=== PATIENT | male | born 1935 | race Caucasian/White ===

== ENCOUNTER → 2016-05-20 | Outpatient (CLI) | payer OTHER ==
[2016-05-20 13:49] LABS: ALT/SGPT 15 U/L (12-78); BLOOD UREA NITROGEN 15 mg/dl (7-18); BUN/CREATININE RATIO 13.5 (10-20); CALCIUM 9.1 mg/dl (8.5-10.1); CARBON DIOXIDE 25 mmol/L (21-32); CHLORIDE 105 mmol/L (98-107); GLUCOSE 78 mg/dl (70-99); POTASSIUM 4.2 mmol/L (3.5-5.1); SODIUM 140 mmol/L (136-145)
[2016-05-20 13:59] LABS: ALB/GLOB RATIO 1.3 (0.9-2); ALKALINE PHOSPHATASE 52 U/L (45-117); AST/SGOT 18 U/L (15-37)
== END | disposition home or self-care (01) ==
LOC: C.LABPBG 10:54
PROVIDERS: ATTEND Internal Medicine
DX: I10 Essential (primary) hypertension (principal); R41.3 Other amnesia

== ENCOUNTER → 2016-05-22 | Outpatient (CLI) | payer OTHER ==
[~2016-05-22] MED LIST: OPTIRAY 320 IV PRN
--- NOTE | 2016-05-23 08:37 | DIAGNOSTIC IMAGING REPORT ---
CT ANGIOGRAPHY OF THE ABDOMEN AND PELVIS WITH CONTRAST CT DOSE: 324.84 mGy.cm CLINICAL HISTORY: Abdominal pain. TECHNIQUE: Helical axial images of the abdomen and pelvis were obtained during arterial phase following intravenous injection of 89 cc of Optiray 320 IV. Sagittal and coronal reconstructions were reviewed as well as maximal intensity projections on an independent 3-D workstation. COMPARISON STUDY: Abdominal series July 17, 2015. FINDINGS: The heart is mildly enlarged. Arterial phase images of the liver, spleen, adrenal glands, kidneys and pancreas are unremarkable. There is no biliary or pancreatic ductal dilatation. There is no pneumatosis, free air or portal venous gas. The prostate is moderately enlarged. There is no evidence for a bowel obstruction. There is mild wall thickening of the terminal ileum. There is no free air or abscess. The appendix is not visualized. The caliber of the abdominal aorta is normal. The celiac axis is patent. There is mild plaque at the origin of the superior mesenteric artery without significant stenosis. The inferior mesenteric artery is patent. The left renal artery is patent. There is moderate stenosis of the proximal right renal artery. An accessory renal artery is present There is no dissection. No lymphadenopathy is present. Note is made of a 3 mm nonobstructing calculus at the left ureterovesical junction. There is no upstream dilatation. No suspicious skeletal lesions are identified. Numerous subcentimeter renal lesions are too small to characterize. IMPRESSION: 1. No significant stenosis of the major mesenteric vessels. Mild plaque at the origin of the SMA without significant stenosis. 2. Moderate stenosis of the proximal right renal artery. 3. Mild nonspecific wall thickening of the terminal ileum. 4. Nonobstructing 3 mm calculus at the left ureterovesical junction. Electronically signed by: Ernesto Stephenson M.D. 05/23/2016 8:35 AM Dictated Date/Time: 05/22/2016 3:59 PM
== END | disposition home or self-care (01) ==
LOC: C.CTS 14:08
PROVIDERS: ATTEND Internal Medicine
DX: R10.9 Unspecified abdominal pain (principal); I70.1 Atherosclerosis of renal artery; N20.0 Calculus of kidney

== ENCOUNTER → 2016-05-29 | Outpatient (CLI) | payer OTHER ==
--- NOTE | 2016-05-29 14:14 | DIAGNOSTIC IMAGING REPORT ---
NUCLEAR GASTRIC EMPTYING STUDY CLINICAL HISTORY: Generalized abdominal pain. COMPARISON STUDY: Abdominal CT dated 05/22/2016. TECHNIQUE: Following the oral administration of 1.02 mCi of technetium 99m sulfur colloid in egg sandwich and 8 ounces of water, static abdominal images are obtained anteriorly and posteriorly at 0 minutes, 1 hour, 2 hour, and 4 hour time intervals. Gastric emptying was calculated utilizing the geometric mean method. FINDINGS: There is approximately 78% activity remaining at the 1 hour time interval, 39% remaining at the 2 hour time interval (normal is less than 60%), and 0% activity remaining at the 4 hour time interval (normal is less than 10%). IMPRESSION: Findings are consistent with normal gastric emptying for solids. Electronically signed by: Micheal Woods M.D. 05/29/2016 2:12 PM Dictated Date/Time: 05/29/2016 2:11 PM
== END | disposition home or self-care (01) ==
LOC: C.NUCL 08:21
PROVIDERS: ATTEND Internal Medicine
DX: R10.9 Unspecified abdominal pain (principal)

== ENCOUNTER → 2016-12-03 | Outpatient (CLI) | payer OTHER ==
[2016-12-03 13:14] LABS: BLOOD UREA NITROGEN 13 mg/dl (7-18); BUN/CREATININE RATIO 12.2 (10-20); CALCIUM 8.9 mg/dl (8.5-10.1); CARBON DIOXIDE 25 mmol/L (21-32); CHLORIDE 108 mmol/L (98-107); GLUCOSE 93 mg/dl (70-99); POTASSIUM 3.8 mmol/L (3.5-5.1); SODIUM 142 mmol/L (136-145)
[2016-12-03 13:16] LABS: CHOLESTEROL 207 mg/dl (0-200); HDL CHOLESTEROL 52 mg/dl; LDL CHOLESTEROL CALCULATED 130 mg/dl; TRIGLYCERIDES 124 mg/dl (0-150); VERY LOW DENSITY LIPOPROT CALC 25 mg/dl
== END | disposition home or self-care (01) ==
LOC: C.LABPBG 08:42
PROVIDERS: ATTEND Physician Assistant
DX: Z00.00 Encounter for general adult medical examination without abnormal findings (principal); E78.5 Hyperlipidemia, unspecified; I10 Essential (primary) hypertension

== ENCOUNTER 2023-04-02 17:51 | Inpatient (IN) ==
[2023-04-02] MEDS ORDERED: SODIUM CHLORIDE 0.9% 500 ML IV ONE (18:01)
--- NOTE | 2023-04-02 18:14 | Emergency Department Note ---
Impression & Plan SBO (small bowel obstruction), Dementia, Leukocytosis ED Provider Note NAME: SANDEEP FLORES AGE: 88 SEX: M ARRIVES VIA: Ambulance INFORMANT: Patient ED PROVIDER(S): Winston Delatorre MD CHIEF COMPLAINT: Abdominal pain PLAN: Disposition: Admit MEDICAL DECISION MAKING: The patient is a pleasant 88-year-old gentleman with a past medical history of dementia, hypertension, hyperlipidemia, constipation who presents to the emergency department via EMS, accompanied by his for evaluation of acute onset severe left-sided and lower abdominal pain that occurred this evening where she reports he yelled out in pain. She reports that after receiving morphine by EMS his symptoms improved. She does admit that his abdomen looks distended but this often occurs/fluctuates. She reports that he frequently will complain of pain but not as severe as he did today and usually the pain will dissipate very quickly. She reports he has been belching repeatedly. She reports she does not know for sure when his last bowel movement was as he frequently will go to the bathroom on his own and due to his dementia cannot remember if he moves his bowels or not. She further adds that he also likely does not remember if he has pain or not. On my evaluation the patient is in no acute distress, afebrile with elevated blood pressure and vital signs otherwise stable. His abdomen is distended but not tense. He has generalized abdominal discomfort without discrete tenderness. WBC 13.8 K, nonspecific. H/H and platelets within normal limits. Chemistry without metabolic acidosis. Electrolytes and LFTs without significant abnormality. Lipase not elevated. CT of the abdomen pelvis was performed and per radiology interpretation suggest evidence of enteritis but also with dilated loops of bowel measuring up to 3.3 cm concerning for partial small bowel obstruction. Findings reviewed with the patient and his at the bedside. Ultimately they did agree with plan for admission for further management and NG tube placement and surgical consultation. Case was discussed with general surgery then stool wired, with general surgery Dr. Rosado on-call. Appreciate consultation recommendations. Agrees with management with NG tube at this time. Case was discussed with Dr. Schumacher, [facility] hospitalist, who will evaluate the patient for admission. Further management per general surgery and admitting team. Triage Nursing notes reviewed and agree them. Prior/external medical records reviewed Vital Signs: reviewed Differential diagnosis: Gastroenteritis, food borne illness, infections, appendicitis, diverticulitis, inflammatory bowel disease, obstruction, GI bleed, biliary pathology, volvulus, as well as other pathologies. ER treatment provided: See below. Diagnostics interpreted by me: Cardiac Monitoring: An order for continuous cardiac monitoring was placed and demonstrated normal sinus rhythm, 76 bpm, no ectopy. Laboratory studies: See below Imaging studies: See below Consultation(s): Antony Saba general surgery PAC with general surgery Dr. Rosado on-call. Dr. Schumacher, [facility] hospitalist. HPI: The patient is a pleasant 88-year-old gentleman with a past medical history of dementia, hypertension, hyperlipidemia, constipation who presents to the emergency department via EMS, accompanied by his for evaluation of acute onset severe left-sided and lower abdominal pain that occurred this evening where she reports he yelled out in pain. She reports that after receiving morphine by EMS his symptoms improved. She does admit that his abdomen looks distended but this often occurs/fluctuates. She reports that he frequently will complain of pain but not as severe as he did today and usually the pain will dissipate very quickly. She reports he has been belching repeatedly. She reports she does not know for sure when his last bowel movement was as he frequently will go to the bathroom on his own and due to his dementia cannot remember if he moves his bowels or not. She further adds that he also likely does not remember if he has pain or not. ROS: See above HPI for pertinent positives & negatives. A total of 10 systems reviewed and were otherwise negative. VITALS:See Below PHYSICAL EXAMINATION: GENERAL: Awake, alert, in no distress HENT: Normocephalic, atraumatic. Oropharynx unremarkable. EYES: Normal conjunctiva. Sclera non-icteric. NECK: Supple. No nuchal rigidity. FROM. No JVD. RESPIRATORY: Clear to auscultation. CARDIAC: Regular rate, normal rhythm. Extremities warm and well perfused. Pulses equal. ABDOMEN: Abdomen is distended but not tense. He has generalized abdominal discomfort without discrete tenderness. RECTAL: Deferred. MUSCULOSKELETAL: Chest examination reveals no tenderness. The back is symmetrical on inspection without obvious abnormality. There is no CVA tenderness to palpation. No joint edema. LOWER EXTREMITIES: Calves are equal size bilaterally and non-tender. No edema. No discoloration. NEURO: Pleasantly confused. No focal sensory or motor deficits noted. SKIN: No rash or jaundice noted. Winston Delatorre MD Past Med/Surg History Medical History [place] (hard of hearing) History of neuropathy POST SHINGLES/USES PILLOW SUPPORT FOR LEFT ARM. Acid reflux Hiatal hernia Afib DX 3-4 YR AGO. NO HX CARDIOVERSION. HTN (hypertension) ? History of renal calculi History of excessive cerumen BILATERAL Mauro esophagus ? Dementia FOLLOWS NEURO. PT ABLE TO COMMUNICATE EFFECTIVELY. Surgical History History of cataract surgery right History of endoscopy WITH FIRST ENDOSCOPY MENTIONED BARRETS ESOPHAGUS. WITH SECOND ENDOSCOPY BARRETS ESOPHAGUS WASN'T MENTIONED/A HIATAL HERNIA WAS MENTIONED. History of laminectomy Laminectomy Decompress, Facetectomy, Foraminotomy Lumbar Seg History of colonoscopy History of appendectomy Family History Father Hypertension Myocardial infarction Brother Hypertension Son Colorectal cancer Other Family history non-contributory Family history of ischemic heart disease before age 50 Denies family history of Ovarian cancer Prostate cancer Breast cancer Social History Smoking Status: Unknown if ever smoked Tobacco Type: Cigarettes Age Started Using Tobacco: 15; Age Quit Using Tobacco: 61; packs per day: 0.5; Cigarettes Per Day: 1960; Second Hand Exposure: No; Do You Dip or Chew Tobacco: No; Hx Alcohol Use: No Hx Substance Use: No Preferred Language: Slovenian Communication Ability: Effective Communication Ability Comment: PT IS [place]/COMMUNICATION IS EFFECTIVE/SEE PAT COMMUNICATION NOTES. Visual Impairment: Limited Hearing Ability: Hard of Hearing 411 Directory Assistance Operator Required: No Beliefs That Will Affect Care: None marital status: Current Living Situation: Spouse and Family Current Living Situation Comment: AND DAUGHTER current occupational status: retired Feels Safe at Home: Yes Childhood Exposure to Second-Hand Smoke: Yes Diet: regular Diet Comment: well balanced. caffeine: Yes (Coffee x2 in the am.) during the past year weight has: remained stable Dental Care, Regularly: Yes Physical Activity Frequency: Does not Exercise Seatbelt Use: always Sunscreen Use: No Assistive Devices: Glasses and Hearing Aid - Bilateral Allergies Allergies Allergy/AdvReac Type Severity Reaction Status Date / Time oxytetracycline Allergy Unknown MADE Verified 04/02/23 18:05 [From Terramycin] ILLNESS WORSE Home Meds Home Medications Medication Instructions Recorded Confirmed cholecalciferol (vitamin D3) 25 2,000 units PO QAM 03/29/19 04/02/23 mcg (1,000 unit) tablet (Vitamin D3) vitamin B complex (B 1 tab PO QAM 10/24/21 04/02/23 Complex-Vitamin B12 tablet) memantine 28 mg capsule 28 mg PO QAM 09/05/22 04/02/23 sprinkle,extended release 24hr omeprazole 20 mg capsule,delayed 20 mg PO UD PRN Acid Reflux 09/05/22 04/02/23 release aspirin 81 mg tablet,delayed 81 mg PO QAM 01/16/23 04/02/23 release metoprolol succinate 25 mg 25 mg PO QAM 01/16/23 04/02/23 tablet,extended release 24 hr Results & Data (ED) Vital Signs Vital Signs - 24 hr 04/02/23 17:34 04/02/23 18:00 04/02/23 18:37 Temperature 36.9 C Temperature Source Oral Pulse Rate 67 69 Pulse Rate from SpO2 Sensor Respiratory Rate 15 Blood Pressure 194/139 H Blood Pressure Mean 157 Pulse Oximetry 99 Oxygen Delivery Method Room Air Room Air Sepsis Recent Fever Within 48 Hours No Sepsis New/Unexplained Change in Mental Status No Sepsis Action Taken by Nursing No Action Required 04/02/23 18:37 04/02/23 19:00 04/02/23 19:06 Temperature Temperature Source Pulse Rate 71 74 75 Pulse Rate from SpO2 Sensor 68 74 73 Respiratory Rate 18 18 22 Blood Pressure 220/146 H 196/117 H Blood Pressure Mean 170 143 Pulse Oximetry 98 97 86 L Oxygen Delivery Method Sepsis Recent Fever Within 48 Hours Sepsis New/Unexplained Change in Mental Status Sepsis Action Taken by Nursing 04/02/23 19:15 04/02/23 19:34 04/02/23 19:38 Temperature Temperature Source Pulse Rate 73 74 72 Pulse Rate from SpO2 Sensor Respiratory Rate 27 H 24 19 Blood Pressure 214/124 H 205/120 H Blood Pressure Mean 154 148 Pulse Oximetry 69 L Oxygen Delivery Method Sepsis Recent Fever Within 48 Hours Sepsis New/Unexplained Change in Mental Status Sepsis Action Taken by Nursing 04/02/23 20:00 Temperature Temperature Source Pulse Rate 81 Pulse Rate from SpO2 Sensor Respiratory Rate 20 Blood Pressure Blood Pressure Mean Pulse Oximetry 95 Oxygen Delivery Method Sepsis Recent Fever Within 48 Hours Sepsis New/Unexplained Change in Mental Status Sepsis Action Taken by Nursing Laboratory Data Attestation: I reviewed the patient's lab results. 04/02/23 18:30 04/02/23 18:30 Lab Results 04/02/23 Range/Units 18:30 WBC 13.83 H (4.8-10.8) K/ul RBC 4.73 (4.70-6.10) M/uL Hgb 14.8 (14.0-18.0) g/dl Hct 43.5 (42.0-52.0) % MCV 92.0 (80.0-100.0) fL MCH 31.3 (25.0-34.0) pg MCHC 34.0 (32.0-36.0) g/dL RDW Std Deviation 42.8 (36.4-46.3) fL RDW Coeff of Brayan 12.6 (11.5-14.5) % Plt Count 267 (130-400) K/uL MPV 10.7 (9.4-12.4) fL Immature Gran % (Auto) 0.4 % Neut % (Auto) 83.2 % Lymph % (Auto) 11.0 % Barron % (Auto) 4.2 % Eos % (Auto) 0.7 % Baso % (Auto) 0.5 % Neut # (Auto) 11.51 H (1.40-6.50) K/uL Lymph # (Auto) 1.52 (1.20-3.40) K/uL Barron # (Auto) 0.58 (0.11-0.59) K/uL Eos # (Auto) 0.09 (0.00-0.50) K/uL Baso # (Auto) 0.07 (0.00-0.20) K/uL Immature Gran # (Auto) 0.06 (0.01-0.20) K/uL Sodium 138 (136-145) mmol/L Potassium 4.2 (3.5-5.1) mmol/L Chloride 104 (98-107) mmol/L Carbon Dioxide 26 (21-32) mmol/L Anion Gap 8 (3-11) BUN 21 (6-23) mg/dl Creatinine 1.26 (0.6-1.4) mg/dl Est Cr Clr Drug Dosing 35.3 ml/min Est GFR ( Amer) 58.6 ml/min Est GFR (Non-Af Amer) 50.6 ml/min BUN/Creatinine Ratio 16.7 (10-20) Glucose 186 H (70-99(Fasting)) mg/dl Calcium 9.1 (8.6-10.3) mg/dl Total Bilirubin 0.4 (0.2-1.0) mg/dl Direct Bilirubin 0.1 (0-0.2) mg/dl AST 16 (13-39) U/L ALT 8 (7-52) U/L Alkaline Phosphatase 85 (34-104) U/L Total Protein 7.2 (6.0-8.3) gm/dl Albumin 4.0 (3.4-5.0) gm/dl Globulin 3.2 (2.5-4.0) gm/dl Albumin/Globulin Ratio 1.3 (0.9-2) Lipase 19 (11-82) U/L Administered Medications Hydralazine HCl (Hydralazine Hcl 20 Mg/Ml Vial) 10 mg IV Q4H PRN PRN Reason: SBP above 160 Stop: 05/02/23 22:16 Last Admin: 04/02/23 23:10 Dose: 10 mg Documented By: CPB Discontinued Medications Benzocaine/Butamben/Tetracaine HCl (Benzocaine/Tetracain/Butam 50 Appln/5 Gm Can) 1 appln EXT NOW STA Stop: 04/02/23 22:21 Last Admin: 04/02/23 22:37 Dose: 1 appln Documented By: CPB Sodium Chloride (Nss) 500 mls @ 999 mls/hr IV .Q31M ONE Stop: 04/02/23 18:31 Last Infusion: 04/02/23 21:16 Dose: Infused Documented By: Admin: 04/02/23 18:38 Dose: 999 mls/hr Documented By: ARS Acetaminophen (Ofirmev) 1,000 mg in 100 mls @ 400 mls/hr IV NOW STA Stop: 04/02/23 22:01 Last Infusion: 04/02/23 23:11 Dose: Infused Documented By: Admin: 04/02/23 22:42 Dose: 400 mls/hr Documented By: CPB Sodium Chloride (Nss) 1,000 mls @ 125 mls/hr IV .Q8H ENDY Stop: 05/02/23 21:59 Last Admin: 04/02/23 23:14 Dose: Not Given Documented By: JR Pantoprazole Sodium 40 mg/ (Syringe) 10 mls @ 5 mls/min IV NOW ONE Stop: 04/02/23 22:31 Last Admin: 04/02/23 22:43 Dose: 5 mls/min Documented By: CPB Piperacillin Sod/Tazobactam Sod (Zosyn) 4.5 gm in 100 mls @ 200 mls/hr IV NOW ONE Stop: 04/02/23 22:59 Last Infusion: 04/03/23 00:07 Dose: Infused Documented By: Admin: 04/02/23 23:12 Dose: 200 mls/hr Documented By: CPB Ioversol (Optiray 320 500ml) 89 ml IV ONCE ONE Stop: 04/02/23 19:50 Last Admin: 04/02/23 19:51 Dose: 89 ml Documented By: ACE Lidocaine HCl (Lidocaine 2% Jelly 5 Ml Tube) 5 ml EXT NOW ONE Stop: 04/02/23 22:05 Last Admin: 04/02/23 22:37 Dose: 5 ml Documented By: CPB Potassium Chloride/Sodium Chloride (Nss+Kcl 20 Meq 1000ml) Confirm Administered Dose 20 meq IV .STK-MED ONE Stop: 04/02/23 22:54 Last Admin: 04/03/23 01:20 Dose: Not Given Documented By: KW Imaging Data Radiologist's Impression: Abdomen/Pelvis CT 04/02/23 18:32 Exam(s): CT ABDOMEN + PELVIS With Contrast IV Amt: 89 ml optiray 320 EXAM: CT Abdomen and Pelvis With Intravenous Contrast CLINICAL HISTORY: Reason for exam: abd pain, ?constipation. TECHNIQUE: Axial computed tomography images of the abdomen and pelvis with intravenous contrast. CTDI is 20.07 mGy and DLP is 967.36 mGy-cm. Automated exposure control was utilized for the study. A dose lowering technique was utilized adhering to the principles of ALARA. CONTRAST: Patient received 89 ml optiray 320 of IV contrast COMPARISON: CT abdomen pelvis January 16, 2023. FINDINGS: Lung bases: COPD. No consolidation. Heart: Mild cardiomegaly. ABDOMEN: Liver: Unremarkable. No mass. Gallbladder and bile ducts: Unremarkable. No calcified stones. No ductal dilation. Pancreas: Unremarkable. No mass. No ductal dilation. Spleen: Unremarkable. No splenomegaly. Adrenals: Unremarkable. No mass. Kidneys and ureters: Small renal cysts. No hydronephrosis. Stomach and bowel: Wall thickening of small bowel with perienteric edema, concerning for enteritis. This preferentially involves the bowel in the mid abdomen (series 300 image 33). There are dilated loops of small bowel measuring up to 3.3 cm, concerning for resultant, partial small bowel obstruction. PELVIS: Appendix: No findings to suggest acute appendicitis. Bladder: Unremarkable. No mass. Reproductive: Enlarged prostate gland, measures 5.7 cm mid-lateral. ABDOMEN and PELVIS: Intraperitoneal space: Unremarkable. No free air. No significant fluid collection. Bones/joints: Degenerative changes of the spine. No acute fracture. No dislocation. Soft tissues: Unremarkable. Vasculature: Atherosclerotic changes of the aorta. No abdominal aortic aneurysm. Lymph nodes: Unremarkable. No enlarged lymph nodes. IMPRESSION: Wall thickening of small bowel with perienteric edema, concerning for enteritis. This preferentially involves the bowel in the mid abdomen (series 300 image 33). Associated, dilated loops of small bowel measuring up to 3.3 cm, concerning for resultant, partial small bowel obstruction. Electronically signed by: Loco Francis MD 04/02/23 20:58 PM Discharge Plan Visit Data Chief Complaint: Abdominal Pain Stated Complaint: ABDOMINAL PAIN ED Provider: Winston Delatorre Discharge Problem: SBO (small bowel obstruction), Dementia, Leukocytosis Patient Disposition: Admitted As Inpatient Discharge Instructions Interventions: ED Discharge Assessment Last Done: 04/03/23 00:18 Discharge Problem: Dementia Qualifiers: Dementia type: unspecified type Dementia severity: unspecified severity D ementia behavioral or psychological symptom: unspecified whether behavioral, psychotic, or mood disturbance or anxiety Qualified Code(s): F03.90 - Unspecified dementia, unspecified severity, without behavioral disturbance, psychotic disturbance, mood disturbance, and anxiety Leukocytosis Qualifiers: Leukocytosis type: unspecified Qualified Code(s): D72.829 - Elevated white blood cell count, unspecified
[2023-04-02 18:52] LABS: Basophils # (auto) 0.07 K/uL (0.00-0.20); Basophils % (auto) 0.5 %; Eosinophils # (auto) 0.09 K/uL (0.00-0.50); Eosinophils % (auto) 0.7 %; Hematocrit (blood only) 43.5 % (42.0-52.0); Hemoglobin 14.8 g/dl (14.0-18.0); Immature Granulocytes # (auto) 0.06 K/uL (0.01-0.20); Immature Granulocytes % (auto) 0.4 %; Lymphocytes # (auto) 1.52 K/uL (1.20-3.40); Mean Corpuscular Hemoglobin 31.3 pg (25.0-34.0); Mean Platelet Volume 10.7 fL (9.4-12.4); Monocytes # (auto) 0.58 K/uL (0.11-0.59); Monocytes % (auto) 4.2 %; Neutrophils # (auto) 11.51 K/uL (1.40-6.50); Neutrophils % (auto) 83.2 %; Platelet Count 267 K/uL (130-400); RDW Coefficient of Variation 12.6 % (11.5-14.5); RDW Standard Deviation 42.8 fL (36.4-46.3); Red Blood Count 4.73 M/uL (4.70-6.10); White Blood Count 13.83 K/ul (4.8-10.8)
[2023-04-02 19:07] LABS: Albumin Globulin Ratio 1.3 (0.9-2); BUN Creatinine Ratio 16.7 (10-20); Bilirubin Direct 0.1 mg/dl (0-0.2); Bilirubin,Total 0.4 mg/dl (0.2-1.0); Calcium 9.1 mg/dl (8.6-10.3); Creatinine Clr Calc Pharmacy 35.3 ml/min; Est GFR (African American) 58.6 ml/min; Est GFR (Non-African American) 50.6 ml/min; Globulin 3.2 gm/dl (2.5-4.0); Potassium 4.2 mmol/L (3.5-5.1); Total Protein 7.2 gm/dl (6.0-8.3)
[2023-04-02] MEDS ORDERED: OPTIRAY 320 500ml IV ONE (19:49)
--- NOTE | 2023-04-02 20:59 | CT Scan Report ---
Exam(s): CT ABDOMEN + PELVIS With Contrast IV Amt: 89 ml optiray 320 EXAM: CT Abdomen and Pelvis With Intravenous Contrast CLINICAL HISTORY: Reason for exam: abd pain, ?constipation. TECHNIQUE: Axial computed tomography images of the abdomen and pelvis with intravenous contrast. CTDI is 20.07 mGy and DLP is 967.36 mGy-cm. Automated exposure control was utilized for the study. A dose lowering technique was utilized adhering to the principles of ALARA. CONTRAST: Patient received 89 ml optiray 320 of IV contrast COMPARISON: CT abdomen pelvis January 16, 2023. FINDINGS: Lung bases: COPD. No consolidation. Heart: Mild cardiomegaly. ABDOMEN: Liver: Unremarkable. No mass. Gallbladder and bile ducts: Unremarkable. No calcified stones. No ductal dilation. Pancreas: Unremarkable. No mass. No ductal dilation. Spleen: Unremarkable. No splenomegaly. Adrenals: Unremarkable. No mass. Kidneys and ureters: Small renal cysts. No hydronephrosis. Stomach and bowel: Wall thickening of small bowel with perienteric edema, concerning for enteritis. This preferentially involves the bowel in the mid abdomen (series 300 image 33). There are dilated loops of small bowel measuring up to 3.3 cm, concerning for resultant, partial small bowel obstruction. PELVIS: Appendix: No findings to suggest acute appendicitis. Bladder: Unremarkable. No mass. Reproductive: Enlarged prostate gland, measures 5.7 cm mid-lateral. ABDOMEN and PELVIS: Intraperitoneal space: Unremarkable. No free air. No significant fluid collection. Bones/joints: Degenerative changes of the spine. No acute fracture. No dislocation. Soft tissues: Unremarkable. Vasculature: Atherosclerotic changes of the aorta. No abdominal aortic aneurysm. Lymph nodes: Unremarkable. No enlarged lymph nodes. IMPRESSION: Wall thickening of small bowel with perienteric edema, concerning for enteritis. This preferentially involves the bowel in the mid abdomen (series 300 image 33). Associated, dilated loops of small bowel measuring up to 3.3 cm, concerning for resultant, partial small bowel obstruction. Electronically signed by: Loco Francis MD 04/02/23 20:58 PM
[2023-04-02] MEDS ORDERED: ACETAMINOPHEN 1,000 MG/100 ML VIAL IV STA (21:47)
[2023-04-02] MEDS ORDERED: SODIUM CHLORIDE 0.9% 1,000 ML IV SCH (22:00)
[2023-04-02] MEDS ORDERED: LIDOCAINE 2% JELLY 5 ML TUBE EXT ONE (22:04)
[2023-04-02] MEDS ORDERED: PIPERACILLIN/TAZOBACTAM 4.5 GM in DEXTROSE 5% MINI-B 100 ML IV ONE (22:15)
--- NOTE | 2023-04-02 22:18 | Surgery Consultation ---
Date of Consultation April 02, 2023 Assessment & Plan (1) Small bowel obstruction: I discussed with the treating emergency room physician and the patient is being admitted on the hospital service. From surgery perspective we recommend proceeding as follows: Implement n.p.o. status Provide IV fluid for hydration Utilize antiemetics as needed Utilize analgesics as needed Due to the patient's abdominal distention as well as distention of his stomach noted on CT scan to treat emergency room physician felt that NG tube was warranted which I agree with. At the present time the patient and his are agreeable to this. This may help alleviate some of the patient's abdominal distention. I am concerned with the patient's underlying dementia that he may not permit/tolerate this modality but after discussion with the patient and his along with nursing staff will make an attempt. I discussed with the patient's at bedside that would be preferable to avoid any surgical procedure and utilize her conservative care plan as described above and she is in agreement with this At the present time the patient is comfortable, he does not have hypotension or tachycardia and does not have evidence of acute kidney injury. As noted in history of present illness the patient does not have any abdominal pain on physical exam at this time. I therefore feel a trial of conservative management is warranted in this patient Additional recommendations will be forthcoming based on his clinical course does not involve Supervising Physician Co-Signing Physician Notes I personally saw and evaluated the patient with Bruno Saba PA-C and agree with the assessment and plan. 88-year-old male with partial small bowel obstruction versus enteritis His CT images and results were personally viewed and interpreted by myself We can treat him as a partial small bowel obstruction and keep him n.p.o. He is being admitted to the medical service Will follow along, but no plans for operative intervention at this time History of Present Illness Reason for Consultation: Small bowel obstruction History of Present Illness This is an 88-year-old male who presented to the emergency department at the recommendation of his secondary to abdominal pain. Should be noted that the patient has underlying dementia and therefore could not provide much in the way of meaningful history but his was present at bedside who did help supplement the history. Patient's notes that the patient has chronic on/off abdominal pain almost on a daily basis. She notes that the pain is usually of no consequence but today she noted that her had a poor appetite which was unusual for him. She then notes that approximately 4:00 PM on 04/02/2023 he complained of severe abdominal pain in the mid abdomen. She noted that he appeared nauseated but she notes that he has not had any emesis. She notes that he had several episodes of pain in this fashion so she brought him to the emergency department. She is unsure if the patient has not had any diarrhea and is unsure when the patient had his most recent bowel movement. She has not noted that he has been passing any flatus. The patient's records were reviewed and the patient does have a documented history of chronic abdominal pain and a history of gastric ulcer. According to the patient's he does have a history of abdominal surgery in the form of an appendectomy but has not had any other abdominal surgeries. Since arrival to the emergency department this patient has had labs and imaging which independent reviewed. Patient did have a CT scan of the abdomen pelvis that showed patient had wall thickening of the small bowel with some GURJIT enteric edema which was concerning for an enteritis. There is also associated dilated loops of small bowel which were concerning for partial small bowel obstruction. There is no significant intraperitoneal free air or intraperitoneal free fluid. The stomach did appear dilated on the scan. Labs include a CBC her white blood cell count was 13.8. Hemoglobin and hematocrit along with a platelet count were normal. Chemistry profile showed sodium and potassium along with the BUN and creatinine were normal. There were no elevation of LFTs or lipase At the time of my interview the patient was sitting in a bedside chair and he was in no distress Allergies Allergy/AdvReac Type Severity Reaction Status Date / Time oxytetracycline Allergy Unknown MADE Verified 04/02/23 18:05 [From Terramycin] ILLNESS WORSE Home Medications Medication Instructions Recorded Confirmed Type cholecalciferol (vitamin D3) 25 2,000 units PO QAM 03/29/19 04/02/23 History mcg (1,000 unit) tablet (Vitamin D3) vitamin B complex (B 1 tab PO QAM 10/24/21 04/02/23 History Complex-Vitamin B12 tablet) memantine 28 mg capsule 28 mg PO QAM 09/05/22 04/02/23 History sprinkle,extended release 24hr omeprazole 20 mg capsule,delayed 20 mg PO UD PRN Acid Reflux 09/05/22 04/02/23 History release aspirin 81 mg tablet,delayed 81 mg PO QAM 01/16/23 04/02/23 History release metoprolol succinate 25 mg 25 mg PO QAM 01/16/23 04/02/23 History tablet,extended release 24 hr Patient History Medical History [place] (hard of hearing) History of neuropathy POST SHINGLES/USES PILLOW SUPPORT FOR LEFT ARM. Acid reflux Hiatal hernia Afib DX 3-4 YR AGO. NO HX CARDIOVERSION. HTN (hypertension) ? History of renal calculi History of excessive cerumen BILATERAL Mauro esophagus ? Dementia FOLLOWS NEURO. PT ABLE TO COMMUNICATE EFFECTIVELY. Surgical History History of cataract surgery right History of endoscopy WITH FIRST ENDOSCOPY MENTIONED BARRETS ESOPHAGUS. WITH SECOND ENDOSCOPY BARRETS ESOPHAGUS WASN'T MENTIONED/A HIATAL HERNIA WAS MENTIONED. History of laminectomy Laminectomy Decompress, Facetectomy, Foraminotomy Lumbar Seg History of colonoscopy History of appendectomy Family History Father Hypertension Myocardial infarction Brother Hypertension Son Colorectal cancer Other Family history non-contributory Family history of ischemic heart disease before age 50 Denies family history of Ovarian cancer Prostate cancer Breast cancer Social History Smoking Status: Former smoker Tobacco Type: Cigarettes Age Started Using Tobacco: 15; Age Quit Using Tobacco: 61; packs per day: 0.5; Cigarettes Per Day: 1960; Second Hand Exposure: No; Do You Dip or Chew Tobacco: No; Hx Alcohol Use: No Hx Substance Use: No Preferred Language: Urdu Communication Ability: Effective Communication Ability Comment: PT IS [place]/COMMUNICATION IS EFFECTIVE/SEE PAT COMMUNICATION NOTES. Visual Impairment: Limited Hearing Ability: Hard of Hearing Insurance Follow Up Rep Required: No Beliefs That Will Affect Care: None marital status: Current Living Situation: Spouse Current Living Situation Comment: AND DAUGHTER current occupational status: retired Feels Safe at Home: Yes Childhood Exposure to Second-Hand Smoke: Yes Diet: regular Diet Comment: well balanced. caffeine: Yes (Coffee x2 in the am.) during the past year weight has: remained stable Dental Care, Regularly: Yes Physical Activity Frequency: Does not Exercise Seatbelt Use: always Sunscreen Use: No Assistive Devices: Glasses Review of Systems Constitutional: no fever and no chills Eyes: + corrective lenses Ear, Nose, Mouth, Throat: + hearing loss Respiratory: no cough Cardiovascular: no chest pain Gastrointestinal: as per Subjective / HPI Genitourinary: no urinary frequency Musculoskeletal: no back pain Integumentary: no rash Neurologic: no localized weakness Physical Exam Constitutional: WD/WN, vitals as above Eyes: Wears glasses ENMT: Ears: no hearing impairment and no external ear abnormality Mouth: no oropharynx abnormality Neck: trachea midline Respiratory: normal respiratory effort; no respiratory distress and no labored breathing Cardiovascular: Rate/Rhythm: regular rate Gastrointestinal (Abdomen): Patient's abdomen is noted to have mild to moderate distention. It is tympanic to percussion. Bowel sounds are present. At the time of my exam light and deep palpation did not elicit a painful response. I do not appreciate any hernias on my physical exam. There is no rebound tenderness or guarding. Musculoskeletal: No calf tenderness Skin: no rashes Neurologic: moves all extremities Psychiatric: Patient is alert to person. He is confused to time and place Results & Data Vital Signs (Past 12 Hours) Vital Signs Temp Pulse Resp BP Pulse Ox O2 Del Method 04/02/23 18:37 69 04/02/23 18:00 Room Air 04/02/23 17:34 36.9 C 67 15 194/139 H 99 Room Air PG Care Time/CCT Total # of Minutes Spent Total Time Spent with Patient: Total time spent is greater than 50% in coordination of care (as documented) at patient's floor/unit and/or counseling patient: Coding Level of Care Code 24987 INT INP/OBS CARE 3/75MIN Diagnoses Small bowel obstruction K56.609
[2023-04-02] MEDS ORDERED: BENZOCAINE/TETRACAIN/BUTAM 50 APPLN/5 GM CAN EXT STA (22:20)
--- NOTE | 2023-04-02 22:22 | History & Physical Report ---
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 Zosyn 4.5 g IV every 8 hours Pantoprazole 40 mg IV daily NSS + KCl 20 mill equivalents at 80 mL/h Acetaminophen 1 g IV every 8 hours as needed for mild pain or fever Zofran 4 mg IV every 6 hours as needed Daily CBC with differential, chemistry profile, magnesium and phosphorus levels General surgery consult Hypertension- Hold aspirin and metoprolol succinate Hydralazine 10 mg IV every 4 hours as needed for systolic blood pressure above 160 Dementia- may need to stay with patient, as he tends to become disoriented and agitated when she is not around Holding memantine due to n.p.o. status CODE STATUS: DNR/DNI, as confirmed by History of Present Illness Chief Complaint: The patient presents to the emergency department with his , who provides most of his information, as the patient has significant dementia, which limits his ability to input about his condition Primary Care Provider: JAKE Martinez The patient is an 88-year-old male with a past medical history including Mauro's esophagus, chronic pain syndrome, dementia, GERD, hyperlipidemia, hypertension, vitamin D deficiency, polyneuropathy, history of gastric ulcer, chronic right SI joint pain and vitamin B12 deficiency. The patient's noted that the patient has been having increasing abdominal distention, with decreased oral intake over the past week, and presented with him to the ED for assessment. Allergies Allergy/AdvReac Type Severity Reaction Status Date / Time oxytetracycline Allergy Unknown MADE Verified 04/02/23 18:05 [From Terramycin] ILLNESS WORSE Home Medications Medication Instructions Recorded Confirmed Type cholecalciferol (vitamin D3) 25 2,000 units PO QAM 03/29/19 04/02/23 History mcg (1,000 unit) tablet (Vitamin D3) vitamin B complex (B 1 tab PO QAM 10/24/21 04/02/23 History Complex-Vitamin B12 tablet) memantine 28 mg capsule 28 mg PO QAM 09/05/22 04/02/23 History sprinkle,extended release 24hr omeprazole 20 mg capsule,delayed 20 mg PO UD PRN Acid Reflux 09/05/22 04/02/23 History release aspirin 81 mg tablet,delayed 81 mg PO QAM 01/16/23 04/02/23 History release metoprolol succinate 25 mg 25 mg PO QAM 01/16/23 04/02/23 History tablet,extended release 24 hr Past Med/Surg History Medical History [place] (hard of hearing) History of neuropathy POST SHINGLES/USES PILLOW SUPPORT FOR LEFT ARM. Acid reflux Hiatal hernia Afib DX 3-4 YR AGO. NO HX CARDIOVERSION. HTN (hypertension) ? History of renal calculi History of excessive cerumen BILATERAL Mauro esophagus ? Dementia FOLLOWS NEURO. PT ABLE TO COMMUNICATE EFFECTIVELY. Surgical History History of cataract surgery right History of endoscopy WITH FIRST ENDOSCOPY MENTIONED BARRETS ESOPHAGUS. WITH SECOND ENDOSCOPY BARRETS ESOPHAGUS WASN'T MENTIONED/A HIATAL HERNIA WAS MENTIONED. History of laminectomy Laminectomy Decompress, Facetectomy, Foraminotomy Lumbar Seg History of colonoscopy History of appendectomy Family History Father Hypertension Myocardial infarction Brother Hypertension Son Colorectal cancer Other Family history non-contributory Family history of ischemic heart disease before age 50 Denies family history of Ovarian cancer Prostate cancer Breast cancer Social History Smoking Status: Unknown if ever smoked Tobacco Type: Cigarettes Age Started Using Tobacco: 15; Age Quit Using Tobacco: 61; packs per day: 0.5; Cigarettes Per Day: 1960; Second Hand Exposure: No; Do You Dip or Chew Tobacco: No; Hx Alcohol Use: No Hx Substance Use: No Preferred Language: Chinese Communication Ability: Effective Communication Ability Comment: PT IS [place]/COMMUNICATION IS EFFECTIVE/SEE PAT COMMUNICATION NOTES. Visual Impairment: Limited Hearing Ability: Hard of Hearing [employer] Required: No Beliefs That Will Affect Care: None marital status: Current Living Situation: Spouse and Family Current Living Situation Comment: AND DAUGHTER current occupational status: retired Feels Safe at Home: Yes Childhood Exposure to Second-Hand Smoke: Yes Diet: regular Diet Comment: well balanced. caffeine: Yes (Coffee x2 in the am.) during the past year weight has: remained stable Dental Care, Regularly: Yes Physical Activity Frequency: Does not Exercise Seatbelt Use: always Sunscreen Use: No Assistive Devices: Glasses and Hearing Aid - Bilateral Review of Systems Review of Systems: Review of systems is limited due to patient's significant dementia, however, his presents information as noted above. She denies him having any issues with nausea or vomiting. Physical Exam Physical Exam: The patient is awake, alert, well developed and well nourished, normocephalic and atraumatic, lying in bed and in no acute distress. HEENT--PERRL, EOMI, mucous membranes and oropharynx dry. Neck--supple. No JVD. No bruits. Thyroid normal, trachea midline, no adenopathy. Heart--normal S1 and S2. No murmurs, rubs or gallops. Lungs--clear bilaterally, no respiratory distress, no accessory muscle use. Abdomen--normal bowel sounds and soft. Nontender. Moderately distended and tympanitic. Extremities--no cyanosis or clubbing. No edema. Dermatologic--normal skin turgor, normal color, no abnormal lymph nodes, no rash. Neurologic--cranial nerves II through XII grossly intact. Rheumatologic--normal range of motion. Psychiatric--normal affect Results & Data Results & Data Vital Signs (Past 12 Hours) Vital Signs Temp Pulse Resp BP Pulse Ox O2 Del Method 04/02/23 18:37 69 04/02/23 18:00 Room Air 04/02/23 17:34 36.9 C 67 15 194/139 H 99 Room Air Laboratory Results Laboratory Results WBC 13.83 K/ul (4.8-10.8) H 04/02/23 18:30 RBC 4.73 M/uL (4.70-6.10) 04/02/23 18:30 Hgb 14.8 g/dl (14.0-18.0) 04/02/23 18:30 Hct 43.5 % (42.0-52.0) 04/02/23 18:30 MCV 92.0 fL (80.0-100.0) 04/02/23 18:30 MCH 31.3 pg (25.0-34.0) 04/02/23 18:30 MCHC 34.0 g/dL (32.0-36.0) 04/02/23 18:30 RDW Std Deviation 42.8 fL (36.4-46.3) 04/02/23 18:30 RDW Coeff of Brayan 12.6 % (11.5-14.5) 04/02/23 18: Plt Count 267 K/uL (130-400) 04/02/23 18:30 MPV 10.7 fL (9.4-12.4) 04/02/23 18:30 Immature Gran % (Auto) 0.4 % 04/02/23 18: Neut % (Auto) 83.2 % 04/02/23 18:30 Lymph % (Auto) 11.0 % 04/02/23 18:30 [place] % (Auto) 4.2 % 04/02/23 18:30 Eos % (Auto) 0.7 % 04/02/23 18: Baso % (Auto) 0.5 % 04/02/23 18:30 Neut # (Auto) 11.51 K/uL (1.40-6.50) H 04/02/23 18:30 Lymph # (Auto) 1.52 K/uL (1.20-3.40) 04/02/23 18:30 [place] # (Auto) 0.58 K/uL (0.11-0.59) 04/02/23 18:30 Eos # (Auto) 0.09 K/uL (0.00-0.50) 04/02/23 18:30 Baso # (Auto) 0.07 K/uL (0.00-0.20) 04/02/23 18:30 Immature Gran # (Auto) 0.06 K/uL (0.01-0.20) 04/02/23 18:30 Sodium 138 mmol/L (136-145) 04/02/23 18:30 Potassium 4.2 mmol/L (3.5-5.1) 04/02/23 18:30 Chloride 104 mmol/L (98-107) 04/02/23 18:30 Carbon Dioxide 26 mmol/L (21-32) 04/02/23 18:30 Anion Gap 8 (3-11) 04/02/23 18:30 BUN 21 mg/dl (6-23) 04/02/23 18:30 Creatinine 1.26 mg/dl (0.6-1.4) 04/02/23 18:30 Est Cr Clr Drug Dosing 35.3 ml/min 04/02/23 18:30 Est GFR ( Amer) 58.6 ml/min 04/02/23 18:30 Est GFR (Non-Af Amer) 50.6 ml/min 04/02/23 18:30 BUN/Creatinine Ratio 16.7 (10-20) 04/02/23 18:30 Glucose 186 mg/dl (70-99(Fasting)) H 04/02/23 18:30 Calcium 9.1 mg/dl (8.6-10.3) 04/02/23 18:30 Total Bilirubin 0.4 mg/dl (0.2-1.0) 04/02/23 18:30 Direct Bilirubin 0.1 mg/dl (0-0.2) 04/02/23 18:30 AST 16 U/L (13-39) 04/02/23 18:30 ALT 8 U/L (7-52) 04/02/23 18:30 Alkaline Phosphatase 85 U/L (34-104) 04/02/23 18:30 Total Protein 7.2 gm/dl (6.0-8.3) 04/02/23 18:30 Albumin 4.0 gm/dl (3.4-5.0) 04/02/23 18:30 Globulin 3.2 gm/dl (2.5-4.0) 04/02/23 18:30 Albumin/Globulin Ratio 1.3 (0.9-2) 04/02/23 18:30 Lipase 19 U/L (11-82) 04/02/23 18:30 Impressions Abdomen/Pelvis CT 04/02/23 18:32 Exam(s): CT ABDOMEN + PELVIS With Contrast IV Amt: 89 ml optiray 320 EXAM: CT Abdomen and Pelvis With Intravenous Contrast CLINICAL HISTORY: Reason for exam: abd pain, ?constipation. TECHNIQUE: Axial computed tomography images of the abdomen and pelvis with intravenous contrast. CTDI is 20.07 mGy and DLP is 967.36 mGy-cm. Automated exposure control was utilized for the study. A dose lowering technique was utilized adhering to the principles of ALARA. CONTRAST: Patient received 89 ml optiray 320 of IV contrast COMPARISON: CT abdomen pelvis January 16, 2023. FINDINGS: Lung bases: COPD. No consolidation. Heart: Mild cardiomegaly. ABDOMEN: Liver: Unremarkable. No mass. Gallbladder and bile ducts: Unremarkable. No calcified stones. No ductal dilation. Pancreas: Unremarkable. No mass. No ductal dilation. Spleen: Unremarkable. No splenomegaly. Adrenals: Unremarkable. No mass. Kidneys and ureters: Small renal cysts. No hydronephrosis. Stomach and bowel: Wall thickening of small bowel with perienteric edema, concerning for enteritis. This preferentially involves the bowel in the mid abdomen (series 300 image 33). There are dilated loops of small bowel measuring up to 3.3 cm, concerning for resultant, partial small bowel obstruction. PELVIS: Appendix: No findings to suggest acute appendicitis. Bladder: Unremarkable. No mass. Reproductive: Enlarged prostate gland, measures 5.7 cm mid-lateral. ABDOMEN and PELVIS: Intraperitoneal space: Unremarkable. No free air. No significant fluid collection. Bones/joints: Degenerative changes of the spine. No acute fracture. No dislocation. Soft tissues: Unremarkable. Vasculature: Atherosclerotic changes of the aorta. No abdominal aortic aneurysm. Lymph nodes: Unremarkable. No enlarged lymph nodes. IMPRESSION: Wall thickening of small bowel with perienteric edema, concerning for enteritis. This preferentially involves the bowel in the mid abdomen (series 300 image 33). Associated, dilated loops of small bowel measuring up to 3.3 cm, concerning for resultant, partial small bowel obstruction. 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 K22.70 Gastroesophageal reflux disease K21.9 Essential hypertension I10 Hypertension type: essential hypertension 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
[2023-04-02] MEDS ORDERED: PIPERACILLIN/TAZOBACTAM 4.5 GM/100 ML BAG IV ONE (22:30)
[2023-04-02] MEDS ORDERED: PANTOprazole 40 MG in SYRINGE 0 ML IV ONE (22:30)
[2023-04-02] MEDS ORDERED: NSS+KCL 20 MEQ 1000ML IV ONE (22:53)
[2023-04-02] MEDS: hydrALAZINE HCL 20 MG/ML VIAL IV PRN (23:10)
[2023-04-03] MEDS ORDERED: ONDANSETRON INJ 2 MG/ML 2 ML VIAL IV PRN (01:11)
[2023-04-03] MEDS: NSS + 20MEQ KCL 20 MEQ/1,000 ML BAG IV SCH ×2 (01:47→15:57)
[2023-04-03 02:51] LABS: Appearance Urine Clear (Clear); Bilirubin Urine Negative (Negative); Blood Urine Negative (Negative); Color Urine Yellow; Glucose Urine UA Negative (Negative); Ketones Urine Negative (Negative); Leukocyte Esterase Urine Negative (Negative); Nitrite Urine Negative (Negative); Protein Urine Negative (Negative); Specific Gravity Urine > 1.045 (1.000-1.030); Urobilinogen Urine Negative (Negative)
[2023-04-03] MEDS ORDERED: CHLORASEPTIC 1.4% SOLN 180 ML BTL MT PRN (02:58)
[2023-04-03] MEDS: PIPERACILLIN/TAZOBACTAM 4.5 GM in DEXTROSE 5% MINI-B 100 ML IV SCH ×2 (05:03→14:21)
[2023-04-03] MEDS ORDERED: ACETAMINOPHEN 1,000 MG/100 ML VIAL IV PRN (07:00)
--- OUTSIDE RECORDS SUMMARY | 2023-04-03 07:19 | External Medical Summary | Summary of Care ---
Author Name Unknown Organization [facility] Address [address] [place] [address] Phone [phone] Care Team Providers Care Instrumentation Specialist Name Role Phone Chris Vasquez MD Primary Care Provider [phone] Reason for Visit * Reason Comments Follow Up B feet Encounter Details Date Type Department Care Team Description 11/14/2022 Office Visit Podiatry [facility] [address] [place] [address] Juana Espinosa, DPM [address] [place] [address] Onychomycosis*; Pain in toes of both feet Allergies Active Allergy Reactions Severity Noted Date Comments Oxytetracycline 09/02/2003 documented as of this encounter (statuses as of 11/14/2022) Medications Medication Sig Dispensed Refills Start Date End Date Status ASPIRIN 81 MG PO CHEW one a day 0 Act aria Pantoprazole Sodium 40 MG Oral Tablet Delayed Release (Protonix) 0 05/16/2020 Active Metoprolol Succinate ER 25 MG Oral Tablet Extended Release 24 Hour (toPROL XL) 0 04/25/2020 Active Sucralfate 1 GM Oral Tablet (Carafate) Take 1 g by mouth 4 times a day. 0 Active Vitamin D3 1.25 MG (43505 UT) Oral Capsule Take 50,000 Units by mouth daily. 0 Active Memantine HCl ER 28 MG Oral Capsule Extended Release 24 Hour (Namenda XR) 0 08/23/2021 Active Cyanocobalamin 500 MCG Oral Tablet Take 1 Tablet by mouth in the morning. 0 10/26/2021 Active documented as of this encounter (statuses as of 11/14/2022) Active Problems No known active problems documented as of this encounter (statuses as of 11/14/2022) Immunizations Name Administration Dates Next Due COVID-19 mRNA, LNP-s, No Pre serve, 2-Dose Series (WeYAP) 03/27/2021,06/27/2020,06/05/2020 Covid-19, Mrna, Lnp-s, Pf, B ivalent, 30 Mcg, IM, 12 yrs and above (WeYAP) 03/12/2022 Seasonal Influenza, Quadriva lent Hd (Fluzone Hd) 04/05/2022 documented as of this encounter Social History Tobacco Use Types Packs/Day Years Used Date Smoking Tobacco: Former Cigarettes Smokeless Tobacco: Former Quit: 05/02/1958 Alcohol Use Standard Drinks/Week Comments No 0 (1 standard drink = 0.6 oz pur e alcohol) Sex Assigned at Date Recorded Not on file Job Start Date Occupation Industry Not on file Not on file Not on file documented as of this encounter Progress Notes * Juana Espinosa, DECLAN - 11/14/2022 10:56 AM EDT Podiatry Established Note [facility] Name: Nader Brandon : 1935 Date: 11/14/2022 REASON FOR VISIT: foot care SUBJECTIVE: This patient is a 87year old male who presents today accompanied by his .The patient's complains of elongated, thickened, discolored toenails that she is not able to trim. reports that he has dementia. He offers no other complaints today. reports recent visit to PCP 01/16/2022, Chris Vasquez MD Past Medical History: Diagnosis Date Esophageal reflux Gastroesophageal Reflux (GERD) Other and unspecified hyperlipidemia Hypercholesterolemia Unspecified essential hypertension Hypertension, benign ALLERGIES: Review of patient's allergies indicates: Allergen Reactions Oxytetracycline FOCUSED PODIATRIC EXAM: Vitals: There were no vitals filed for this visit. Vascular: Pedal pulses palpable including dorsalis pedis and posterior tibial artery at 2/4 bilaterally. Capillary refill time is within normal limits to all toes. No edema noted. No warmth. Absence ofpedal hair growth noted. Neurologic: Sensation (light touch) intact to the bilateral lower extremities. No hypersensitivity. No weakness. Dermatological: Skin temperature, texture, and turgor are within normal limits. No open lesions. There is no erythema or ecchymosis noted. No interdigital changes. Toenails 1-5 bilaterally are elongated, thickened, and discolored. DIAGNOSTIC STUDIES: No new ASSESSMENT: 1. Onychomycosis TA T1 T2 T3 T4 T5 T6 T7 T8 T9 2. Pain in toes of both feet PLAN: Procedure: After mild cleansing and drying of feet, toenails 1-5 bilaterally were manually and mechanically debrided without incident. A nail splitter was used to remove all incurvating edges. A upper cutter wasused to trim nail to appropriate length. An electrical bur was used in a side to side motion to reduce nail thickness, hypertrophic growth, and to smooth all edges. Patient tolerated well. They noted improvement following procedure. Follow up: 3 months documented in this encounter Nursing Notes * Ingrid Ventura ATC - 11/14/2022 10:20 AM EDT Routine nail care documented in this encounter Plan of Treatment Upcoming Encounters Date Type Specialty Care Team Description 02/14/2023 Office Visit Podiatry Juaan Espinosa DPM [address], [place] [id number] Health Maintenance Due Date Last Done Comments Depression Screening, Annual for Pts 12 and Over 1947 DTaP,Tdap,and Td Vaccines (1 - Tdap) 1954 Pneumococcal Vaccine: 65+ Years (1 - PCV) 2000 Zoster Vaccines (2 of 3) 03/06/2009 01/09/2009 Influenza Vaccine (FLU shot) (#1) 2022 04/05/2022, 01/25/2019, 03/17/2018, Additional history exists COVID-19 Vaccine Completed 03/12/2022, , 06/27/2020, Additional history exists GARDASIL-HPV IMMUNIZATION SERIES Aged Out No longer eligible based on patient's age to complete this topic Hepatitis B Aged Out No longer eligi ble based on patient's age to complete this topic MENINGOCOCCAL (MENACTRA/MENVEO) Aged Out No longer eligible based on patient's age to complete this topic documented as of this encounter Medical Devices Not on filedocumented as of this encounter Visit Diagnoses Diagnosis Onychomycosis- Primary Dermatophytosis of nail Pain in toes of both feet documented in this encounter Care Teams Instrumentation Specialist Relationship Specialty Start Date End Date Chris Vasquez MD PCP - General Internal Medicine 05/21/18 documented as of this encounter
--- OUTSIDE RECORDS SUMMARY | 2023-04-03 07:19 | External Medical Summary | Summary of Care ---
Author Name Unknown Organization [facility] Address [address] [place] [address] Phone [phone] Care Team Providers Care Tool Engine Lathe Set Up Operator Name Role Phone Chris Vasquez MD Primary Care Provider [phone] Reason for Visit * Reason Comments Follow Up Routine nail trimmin g Encounter Details Date Type Department Care Team Description 02/14/[address] [facility] [address] [place] [address] Juana Espinosa, DPAnne [address] [place], [place] [phone] Onychomycosis*; Pain in toes of both feet Allergies Active Allergy Reactions Severity Noted Date Comments Oxytetracycline 09/02/2003 documented as of this encounter (statuses as of 02/14/2023) Medications Medication Sig Dispensed Refills Start Date [...] day. 0 Active Vitamin D3 1.25 MG (91091 UT) Oral Capsule Take 50,000 Units by mouth daily. 0 Active Memantine HCl ER 28 MG Oral Capsule Extended Release 24 Hour (Namenda XR) 0 08/23/2021 Active Cyanocobalamin 500 MCG Oral Tablet Take 1 Tablet by mouth in the morning. 0 10/26/2021 Active documented as of this encounter (statuses as of 02/14/2023) Active Problems No known active problems documented as of this encounter (statuses as of 02/14/2023) Immunizations Name Administration Dates Next Due COVID-19 mRNA, LNP-s, No Pre serve, 2-Dose Series (Ritani) 03/27/2021,06/27/2020,06/05/2020 Covid-19, Mrna, Lnp-s, Pf, B ivalent, 30 Mcg, IM, 12 yrs and above (Ritani) 03/12/2022 Seasonal Influenza, Quadriva lent Hd (Fluzone [...] of this encounter Progress Notes * Juana Espinosa DPM - 02/14/2023 10:58 AM EDT Podiatry Established Note [facility] Name: Nader Brandon : 1935 Date: 02/14/2023 REASON FOR VISIT: foot care SUBJECTIVE: This patient is a 87 year old male who presents today accompanied by his . The patient's complains of elongated, thickened, discolored toenails that she is not able to trim. Wifereports that he has dementia. He offers no [...] toes. No edema noted. No warmth. Absence of pedal hair growth noted. Neurologic: Sensation (light touch) [...] used to remove all incurvating edges. A underwear cutter wasused to trim nail to appropriate length. An electrical bur was used in a side to side motion to reduce nail thickness, hypertrophic growth, and to smooth all edges. Patient tolerated well. They noted improvement following procedure. Follow up: 3 months documented in this encounter Nursing Notes * Anastasiya Marie LPN - 02/14/2023 10:30 AM EDT Routine nail trimming. Denies new issues. Anastasiya CHERRY documented in this encounter Plan of Treatment Upcoming Encounters Date Type Specialty Care Team Description 05/21/2023 Office Visit Podiatry Juana Espinosa DPM [address] [place] [address] [place] [address] Health Maintenance Due Date Last Done Comments Depression Screening 1947 DTaP,Tdap,and Td Vaccines (1 - Tdap) 1954 Pneumococcal Vaccine: 65+ Years (1 - PCV) 2000 Zoster Vaccines (2 of 3) 03/06/2009 01/09/2009 COVID-19 Vaccine (5 - 2022- season) 2022 03/12/2022, 03/27/2021, 06/27/2020, Additional history exists Influenza Vaccine (FLU shot) (#1) 2022 04/05/2022, 01/25/2019, 03/17/2018, Additional history exists GARDASIL-HPV IMMUNIZATION SERIES Aged [...] feet documented in this encounter Care Teams Tool Engine Lathe Set Up Operator Relationship Specialty Start Date End Date Chris Vasquez MD PCP - General Internal Medicine 05/21/18 documented as of this encounter
--- NOTE | 2023-04-03 07:23 | XRay Report ---
[facility] CLINICAL HISTORY: Confirmation of NG tube placement COMPARISON STUDY: CT of the abdomen and pelvis April 02, 2023 at 7:49 PM. FINDINGS: Tip of nasogastric tube is within the body of the stomach. Gastric distention is again note d. There is mild gaseous distention of visualized portions of the colon. IMPRESSION: Tip of nasogastric tube within the body of the stomach. ACT 112: Negative or not required by law. Electronically signed by: Ernesto Stephenson M.D. 04/03/2023 7:22 AM
[2023-04-03 08:11] LABS: Basophils # (auto) 0.04 K/uL (0.00-0.20); Basophils % (auto) 0.4 %; Eosinophils # (auto) 0.03 K/uL (0.00-0.50); Eosinophils % (auto) 0.3 %; Hematocrit (blood only) 38.3 % (42.0-52.0); Hemoglobin 12.7 g/dl (14.0-18.0); Immature Granulocytes # (auto) 0.05 K/uL (0.01-0.20); Immature Granulocytes % (auto) 0.5 %; Lymphocytes # (auto) 0.84 K/uL (1.20-3.40); Lymphocytes % (auto) 7.9 %; Mean Corpuscular Hemoglobin 30.8 pg (25.0-34.0); Mean Corpuscular Hgb Conc 33.2 g/dL (32.0-36.0); Mean Corpuscular Volume 92.7 fL (80.0-100.0); Mean Platelet Volume 10.7 fL (9.4-12.4); Monocytes # (auto) 0.76 K/uL (0.11-0.59); Monocytes % (auto) 7.1 %; Neutrophils # (auto) 8.98 K/uL (1.40-6.50); Neutrophils % (auto) 83.8 %; Platelet Count 217 K/uL (130-400); RDW Coefficient of Variation 12.7 % (11.5-14.5); RDW Standard Deviation 43.4 fL (36.4-46.3); Red Blood Count 4.13 M/uL (4.70-6.10)
--- NOTE | 2023-04-03 08:12 | Surgery Progress Note ---
Date of Service April 03, 2023 Assessment & Plan (1) SBO (small bowel obstruction): Plan: Patient seen in room trying to get out of bed, Assisted with urinal voided dark yellow clear urine Assisted back to bed , alarm on Patient removed NG tube last night, no vomiting Is pleasantly confused, at bedside reports patient passed flatus last night VSS , WBC 10 Abdomen is still distended, TTP more at LLQ Ok to keep NG tube out at Will continue conservative treatment at this time (2) Dementia: Admission and Anticipated Discharge Date Admission Date: April 02, 2023 Supervising Physician Co-Signing Physician Notes I personally saw and evaluated the patient with Maria Isabel JOSEPH and agree with the assessment and plan. 88-year-old male with partial small bowel obstruction versus enteritis His NG tube came out overnight, no need to replace at this time His states he has been passing some flatus, would still keep n.p.o. for today Will continue to attempt nonoperative management of his partial small bowel obstruction Will follow Subjective patient seen in room trying to get out of bed, Assisted with urinal voided dark yellow clear urine Assisted back to bed , alarm on Patient removed NG tube last night, no vomiting Is pleasantly confused, at bedside reports patient passed flatus last night Review of Systems Constitutional: no fever and no chills Respiratory: no dyspnea Cardiovascular: no chest pain Gastrointestinal: + abdominal pain; no nausea and no vomit ing Genitourinary: no problem reported Musculoskeletal: no problem reported Physical Exam Physical Exam: awake , pleasant Constitutional: cooperative and comfortable; no acute distress Respiratory: normal respiratory effort and able to speak in complete sentences; no respiratory distress Cardiovascular: Rate/Rhythm: regular rate Gastrointestinal (Abdomen): Inspection/Auscultation: + abdomen distended Percussion/Palpation: + abdomen tender (more tender LLQ ) and + abdomen firm Musculoskeletal: seems unsteady on feet Results & Data Vital Signs (Past 12 Hours) Vital Signs Temp Pulse Pulse Resp BP BP BP 04/03/23 08:01 98.6 F 80 16 128/65 04/03/23 00:55 97.3 F L 84 16 186/97 H 04/03/23 00:18 04/02/23 23:45 76 21 140/92 04/02/23 23:30 78 22 121/64 04/02/23 23:23 82 15 146/86 H 04/02/23 22:55 76 18 184/111 H Pulse Ox O2 Del Method 04/03/23 08:01 96 Room Air 04/03/23 00:55 93 Room Air 04/03/23 00:18 Room Air 04/02/23 23:45 04/02/23 23:30 04/02/23 23:23 04/02/23 22:55 96 Room Air PG Care Time/CCT Total # of Minutes Spent Total Time Spent with Patient: Total time spent is greater than 50% in coordination of care (as documented) at patient's floor/unit and/or counseling patient: Coding Level of Care Code 55984 SUB INP/OBS CARE 2MIN Diagnoses SBO (small bowel obstruction) K56.609 Dementia F03.90 Dementia behavioral or psychological symptom: unspecified whether behavioral, psychotic, or mood disturbance or anxiety Dementia severity: unspecified severity Dementia type: unspecified type (2) Dementia Dementia behavioral or psychological symptom: unspecified whether behavioral, psychotic, or mood disturbance or anxiety Dementia severity: unspecified severity Dementia type: unspecified type Qualified Code(s): F03.90 - Unspecified dementia, unspecified severity, without behavioral disturbance, psychotic disturbance, mood disturbance, and anxiety
[2023-04-03 08:35] LABS: Albumin Globulin Ratio 1.4 (0.9-2); Albumin Level 3.5 gm/dl (3.4-5.0); BUN Creatinine Ratio 16.2 (10-20); Calcium 8.9 mg/dl (8.6-10.3); Est GFR (African American) 56.5 ml/min; Est GFR (Non-African American) 48.7 ml/min; Globulin 2.5 gm/dl (2.5-4.0); Magnesium 1.7 mg/dl (1.7-2.4); Phosphorus 2.7 mg/dl (2.5-4.9); Potassium 4.7 mmol/L (3.5-5.1)
[2023-04-03] MEDS: PANTOprazole 40 MG in SYRINGE 0 ML IV SCH (10:46)
--- NOTE | 2023-04-03 19:40 | Hospitalist Progress Note ---
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 Stopped Zosyn 4 Pantoprazole 40 mg IV daily NSS + KCl 20 mill equivalents at 80 mL/h Acetaminophen 1 g IV every 8 hours as needed for mild pain or fever Zofran 4 mg IV every 6 hours as needed Daily CBC with differential, chemistry profile, magnesium and phosphorus levels General surgery consult appreciated Hypertension- Hold aspirin and metoprolol succinate Hydralazine 10 mg IV every 4 hours as needed for systolic blood pressure above 160 Dementia- may need to stay with patient, as he tends to become disoriented and agitated when she is not around Holding memantine due to n.p.o. status CODE STATUS: DNR/DNI, as confirmed by Admission and Anticipated Discharge Date Admission Date: April 02, 2023 Subjective patient seen in room trying to get out of bed, Assisted with urinal voided dark yellow clear urine Assisted back to bed , alarm on Patient removed NG tube last night, no vomiting Is pleasantly confused, at bedside reports patient passed flatus last night Physical Exam Physical Exam: awake , pleasant Constitutional: WD/WN, vitals as above cooperative and comfortable; no acute distress Respiratory: normal respiratory effort and able to speak in complete senten dante; no respiratory distress and no labored breathing Cardiovascular: Rate/Rhythm: regular rate Gastrointestinal (Abdomen): Inspection/Auscultation: + abdomen distended Percussion/Palpation: + abdomen tender (more tender LLQ ) and + abdomen firm Skin: no rashes Neurologic: moves all extremities Results & Data Results & Data Vital Signs (Past 12 Hours) Vital Signs Temp Pulse Resp BP BP Pulse Ox O2 Del Method 04/03/23 16:12 36.7 C 62 16 124/85 97 Room Air 04/03/23 08:01 37.0 C 80 16 128/65 96 Room Air 04/03/23 07:40 Room Air PG Care Time/CCT Total # of Minutes Spent Total Time Spent with Patient: Total time spent is greater than 50% in coordination of care (as documented) at patient's floor/unit and/or counseling patient: Coding Level of Care Code 21491 SUB INP/OBS CARE Diagnoses Small bowel obstruction K56.609 Enteritis K52.9 Abdominal bloating R14.0 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 K22.70 Gastroesophageal reflux disease K21.9 Essential hypertension I10 Hypertension type: essential hypertension 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
[2023-04-03] MEDS ORDERED: Nursing to Pharmacy Communication SCH (20:00)
[2023-04-04] MEDS: hydrALAZINE HCL 20 MG/ML VIAL IV PRN (01:37)
[2023-04-04] MEDS: NSS + 20MEQ KCL 20 MEQ/1,000 ML BAG IV SCH (05:12)
[2023-04-04] MEDS ORDERED: Nursing to Pharmacy Communication SCH (05:30)
[2023-04-04 07:33] LABS: Basophils # (auto) 0.05 K/uL (0.00-0.20); Basophils % (auto) 0.7 %; Eosinophils # (auto) 0.24 K/uL (0.00-0.50); Eosinophils % (auto) 3.4 %; Hematocrit (blood only) 37.6 % (42.0-52.0); Hemoglobin 12.7 g/dl (14.0-18.0); Immature Granulocytes # (auto) 0.01 K/uL (0.01-0.20); Immature Granulocytes % (auto) 0.1 %; Lymphocytes # (auto) 1.82 K/uL (1.20-3.40); Lymphocytes % (auto) 26.1 %; Mean Corpuscular Hemoglobin 30.8 pg (25.0-34.0); Mean Corpuscular Hgb Conc 33.8 g/dL (32.0-36.0); Mean Platelet Volume 10.4 fL (9.4-12.4); Monocytes # (auto) 0.72 K/uL (0.11-0.59); Monocytes % (auto) 10.3 %; Neutrophils # (auto) 4.12 K/uL (1.40-6.50); Neutrophils % (auto) 59.4 %; Platelet Count 212 K/uL (130-400); RDW Coefficient of Variation 13.1 % (11.5-14.5); Red Blood Count 4.13 M/uL (4.70-6.10); White Blood Count 6.96 K/ul (4.8-10.8)
[2023-04-04 08:02] LABS: Albumin Globulin Ratio 1.4 (0.9-2); Albumin Level 3.6 gm/dl (3.4-5.0); BUN Creatinine Ratio 13.6 (10-20); Bilirubin,Total 0.8 mg/dl (0.2-1.0); Calcium 8.9 mg/dl (8.6-10.3); Creatinine Clr Calc Pharmacy 35.4 ml/min; Est GFR (African American) 59.2 ml/min; Est GFR (Non-African American) 51.1 ml/min; Globulin 2.6 gm/dl (2.5-4.0); Magnesium 1.8 mg/dl (1.7-2.4); Phosphorus 2.3 mg/dl (2.5-4.9); Total Protein 6.2 gm/dl (6.0-8.3)
--- NOTE | 2023-04-04 10:22 | Surgery Progress Note ---
Date of Service April 04, 2023 Assessment & Plan (1) SBO (small bowel obstruction): Plan: Patient sitting in chair Reports abdominal tenderness to palpation Rn reports no BM, patient removed his IV x2 last night Please replace IV Ordered SBFT to evaluate SBO Patient ambulating in halls with assist WBC wnl Pt seen and examined with Dr. Rosado Admission and Anticipated Discharge Date Admission Date: April 02, 2023 Supervising Physician Co-Signing Physician Notes I personally saw and evaluated the patient with Maria Isabel JOSEPH and agree with the assessment and plan 88 yo male with pSBO versus enteritis Has not had any meaningful return of bowel function yet Will proceed with a SBFT to in hopes this is therapeutic for him Will continue to follow Subjective Patient sitting in chair Reports abdominal tenderness to palpation Rn reports no BM, patient removed his IV x2 last night Review of Systems Constitutional: no fever and no chills Respiratory: no dyspnea Cardiovascular: no chest pain Gastrointestinal: + abdominal pain; no nausea and no vomit ing Genitourinary: no problem reported Neurologic: + confusion Physical Exam Physical Exam: awake alert Constitutional: cooperative and comfortable; no acute distress Respiratory: normal respiratory effort and able to speak in complete sentences; no respiratory distress Cardiovascular: Rate/Rhythm: regular rate Gastrointestinal (Abdomen): Percussion/Palpation: + abdomen tender (TTP) and abdomen soft Results & Data Vital Signs (Past 12 Hours) Vital Signs Temp Pulse Resp BP Pulse Ox O2 Del Method 04/04/23 08:00 97.3 F L 79 16 144/85 H 96 Room Air PG Care Time/CCT Total # of Minutes Spent Total Time Spent with Patient: Total time spent is greater than 50% in coordination of care (as documented) at patient's floor/unit and/or counseling patient: Coding Level of Care Code 56767 SUB INP/OBS CARE 2/35MIN Diagnoses SBO (small bowel obstruction) K56.609
[2023-04-04] MEDS: PANTOprazole 40 MG in SYRINGE 0 ML IV SCH (10:42)
--- NOTE | 2023-04-04 13:14 | Fluoroscopy Report ---
FL small bowel follow through CLINICAL HISTORY: 88 years-old Male with SBO. Acute abdominal pain with reported small bowel obstruc tion TECHNIQUE: Oral barium was administered to the patient and serial radiographs of the abdomen were pe rformed. COMPARISON STUDY: KUB and CT abdomen and pelvis 04/02/2023 FLUOROSCOPY TIME: 0 minutes. 4 images were obtained. FINDINGS: Maintenance Scheduler radiograph of the abdomen demonstrates multiple nondistended loops of air-filled sma ll and large bowel scattered throughout the abdomen. Moderate fecal retention of the right hemicolon. There are no signs of bowel obstruction or evidence of gross pneumoperitoneum. Upon the administration of oral barium contrast, there is prompt opacification of the gastric lumen a nd proximal small bowel. Transit to the large bowel occurred at approximately 20 minus. Subsequentl y, spot fluoroscopic images of the abdomen were obtained and demonstrate freely movable bowel in all four abdominal quadrants. The terminal ileum appears unremarkable. IMPRESSION: 1. Decreased small bowel distention compared to the CT study from 04/02/2023. There is no evidence of small bowel obstruction on today's study. 2. Moderate fecal retention of the right hemicolon. ACT 112: Negative or not required by law. The above report was generated using voice recognition software. It may contain grammatical, syntax o r spelling errors. Electronically signed by: Abraham Reyna M.D. 04/04/2023 1:13 PM
[2023-04-04] MEDS ORDERED: bisacodyL 10 MG SUPP PR STA (14:08)
--- NOTE | 2023-04-04 21:07 | Discharge Summary ---
Date of Service April 04, 2023 Admission HPI Per Admitting Provider The patient is an 88-year-old male with a past medical history including Mauro's esophagus, chronic pain syndrome, dementia, GERD, hyperlipidemia, hypertension, vitamin D deficiency, polyneuropathy, history of gastric ulcer, chronic right SI joint pain and vitamin B12 deficiency. The patient's noted that the patient has been having increasing abdominal distention, with decreased oral intake over the past week, and presented with him to the ED for assessment. Principal Diagnosis Small bowel obstruction versus severe constipation, enteritis possibly secondary to severe constipation Discharge Exam awake , pleasant Constitutional WD/WN, vitals as above cooperative and comfortable; no acute distress Respiratory normal respiratory effort and able to speak in complete sentences; no respiratory distress and no labored breathing Cardiovascular Rate/Rhythm: regular rate Gastrointestinal (Abdomen) Inspection/Auscultation: + abdomen distended Percussion/Palpation: + abdomen tender (more tender LLQ ) and + abdomen firm Skin no rashes Neurologic moves all extremities Discharge Data Allergies Allergy/AdvReac Type Severity Reaction Status Date / Time oxytetracycline Allergy Unknown MADE Verified 04/02/23 18:05 [From Terramycin] ILLNESS WORSE Consultations 04/02/23 21:47 ED Decision to Admit Stat 04/03/23 01:11 Consult General Surgery Routine Ordered Studies 04/02/23 18:32 CT abd pelvis IV con only Stat 04/04/23 10:06 FL small bowel follow through Urgent Hospital Course (1) Small bowel obstruction: Patient suffering from severe constipation, possibly the patient symptom was secondary to severe constipation, patient had large multiple bowel movements, there was evidence of impaction and small bowel follow-through study however given the initial patient's imaging studies were consistent with bowel obstruction patient was treated as a bowel obstruction, initially n.p.o., consulted with surgery. After patient multiple bowel movement patient requested to leave medical advice. (This was the request of his who is the medical POA) patient advised to have [id number] Colace and as needed lactulose for constipation (2) Enteritis: Possibly secondary to severe constipation, patient initially was started on Rocephin, discharged on Augmentin (3) Abdominal bloating: (4) 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: (5) Gastroesophageal reflux disease: (6) Hypertension: (7) Dementia: Plan Small bowel obstruction/enteritis/leukocytosis- NG tube has been removed, patient denied having nausea vomiting, no abdominal distention N.p.o. Stopped Zosyn 4 Pantoprazole 40 mg IV daily NSS + KCl 20 mill equivalents at 80 mL/h Acetaminophen 1 g IV every 8 hours as needed for mild pain or fever Zofran 4 mg IV every 6 hours as needed Daily CBC with differential, chemistry profile, magnesium and phosphorus levels General surgery consult appreciated Hypertension- Hold aspirin and metoprolol succinate Hydralazine 10 mg IV every 4 hours as needed for systolic blood pressure above 160 Dementia- may need to stay with patient, as he tends to become disoriented and agitated when she is not around Holding memantine due to n.p.o. status CODE STATUS: DNR/DNI, as confirmed by Total Time Total Time Spent Total Time Spent (In Minutes): 45 minutes Discharge Plan Discharge Items Patient Disposition: Against Medical Advice Reason For Visit: SBO, ENTERITIS Activity: Resume your previous activity Lifting: None Sexual Activity: When tolerated Weightbearing: Full weightbearing Non-emergency contact: Primary Care Provider Follow-up/Referrals: Aleksandr Levine CRNP [Primary Care Provider] - Pending Studies at Discharge: No Stand-Alone Forms: [employer], Smoking Cessation Medications and DC Order Prescriptions: New amoxicillin-pot clavulanate 875-125 mg tablet 1 tab PO BID Qty: 20 0RF lactulose 10 gram/15 mL (15 mL) solution 20 g PO QID PRN (Reason: constipation) Qty: 600 0RF docusate sodium [Colace] 100 mg capsule 100 mg PO BID Qty: 90 0RF Continued cholecalciferol (vitamin D3) [Vitamin D3] 25 mcg (1,000 unit) tablet 2,000 units PO QAM vitamin B complex [B Complex-Vitamin B12] Tablet 1 tab PO QAM memantine 28 mg capsule,sprinkle,ER 24hr 28 mg PO QAM Rx Instructions: TAKE 1 CAPSULE DAILY omeprazole 20 mg Capsule,Delayed Release(Dr/Ec) 20 mg PO UD PRN (Reason: Acid Reflux) aspirin 81 mg Tablet,Delayed Release (Dr/Ec) 81 mg PO QAM metoprolol succinate 25 mg tablet extended release 24 hr 25 mg PO QAM Discharge Orders: Left Against Medical Advice (Routine); Ordered 12/08/23 Ordered By: Donis Ha Admission Data Admit Date/Time: 04/02/23 22:21 Attending Provider: Donis Ha Admit Provider: Herber Schumacher Primary Care Provider: Aleksandr Levine Other Providers: Herber Schumacher; Vicente Rosado Coding Level of Care Code 10316 INP/OBS DISCH >30 MIN Diagnoses Small bowel obstruction K56.609 Enteritis K52.9 Abdominal bloating R14.0 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 K22.70 Gastroesophageal reflux disease K21.9 Essential hypertension I10 Hypertension type: essential hypertension Late onset Alzheimer's disease without behavioral disturbance G30.1; F02.80 Dementia type: Alzheimer's disease Alzheimer's disease onset: late-onset Dementia behavioral disturbance: without behavioral disturbance
== END 2023-04-04 17:10 | disposition left against medical advice (07) | DRG 389 ==
LOC: ED 17:51 → SUATTDRO 22:21 → 3N 22:21

== ENCOUNTER 2023-06-08 15:56 | Inpatient (IN) ==
[2023-06-08 16:40] LABS: Basophils # (auto) 0.02 K/uL (0.00-0.20); Basophils % (auto) 0.2 %; Hematocrit (blood only) 43.3 % (42.0-52.0); Hemoglobin 14.2 g/dl (14.0-18.0); Immature Granulocytes # (auto) 0.02 K/uL (0.01-0.20); Immature Granulocytes % (auto) 0.2 %; Lymphocytes # (auto) 0.82 K/uL (1.20-3.40); Mean Corpuscular Hemoglobin 30.7 pg (25.0-34.0); Mean Corpuscular Hgb Conc 32.8 g/dL (32.0-36.0); Mean Corpuscular Volume 93.5 fL (80.0-100.0); Mean Platelet Volume 11.1 fL (9.4-12.4); Monocytes # (auto) 1.28 K/uL (0.11-0.59); Neutrophils # (auto) 7.01 K/uL (1.40-6.50); Neutrophils % (auto) 76.6 %; Platelet Count 240 K/uL (130-400); RDW Coefficient of Variation 13.3 % (11.5-14.5); RDW Standard Deviation 45.5 fL (36.4-46.3); Red Blood Count 4.63 M/uL (4.70-6.10); White Blood Count 9.15 K/ul (4.8-10.8)
[2023-06-08 16:55] LABS: Albumin Globulin Ratio 1.3 (0.9-2); Albumin Level 4.4 gm/dl (3.4-5.0); BUN Creatinine Ratio 21.9 (10-20); Calcium 10.1 mg/dl (8.6-10.3); Creatinine Clr Calc Pharmacy 30.4 ml/min; Est GFR (African American) 45.6 ml/min; Est GFR (Non-African American) 39.4 ml/min; Globulin 3.5 gm/dl (2.5-4.0); Total Protein 7.9 gm/dl (6.0-8.3)
--- NOTE | 2023-06-08 17:03 | XRay Report ---
KUB CLINICAL HISTORY: Constipation. COMPARISON STUDY: CT of the abdomen and pelvis and KUB April 02, 2023. Abdominal series March 292022. FINDINGS: Marked gaseous distention of the stomach is again noted. Gastric distention has been shown on several prior exams. Several loops of mildly dilated small bowel within the left upper quadrant ar e present. There is a moderate amount of stool within the colon and rectum. No evidence for free air although sensitivity diminished on this supine exam. IMPRESSION: 1. Several loops of mildly dilated small bowel within left upper quadrant. The findings could reflect a partial small bowel obstruction or ileus. 2. Moderate amount of stool within the colon and rectum. 3. Marked gaseous distention of the stomach. Gaseous distention has been shown on several prior studi es. ACT 112: Negative or not required by law. Electronically signed by: Ernesto Stephenson M.D. 06/08/2023 5:01 PM
[2023-06-08] MEDS: OPTIRAY 320 500ml IV ONE (17:54)
--- NOTE | 2023-06-08 18:21 | CT Scan Report ---
CT OF THE ABDOMEN AND PELVIS WITH CONTRAST CLINICAL HISTORY: abd pain, KUB shows possible ileus/SBO COMPARISON STUDY: CT of the abdomen and pelvis April 02, 2023. KUB performed earlier today. TECHNIQUE: Following IV administration of 85 mL of Optiray, axial images of the abdomen and pelvis we re obtained from the lung bases to the proximal femurs. Images were reviewed in the axial, sagittal, and coronal planes. IV contrast was administered without complication. Automated exposure control wa s utilized for the study. A dose lowering technique was utilized adhering to the principles of ALARA . CT DOSE: 913.76 mGy.cm FINDINGS: No pneumatosis, free air or portal venous gas is present. As before, the distal esophagus i s distended and fluid-filled. The stomach is markedly distended. Moderate amount of fluid within the stomach is present. Gastric distention was also shown on prior CT. No biliary or pancreatic ductal di latation is present. Liver, spleen, adrenal glands and pancreas are unremarkable. No peripancreatic o r pericholecystic stranding. Multiple subcentimeter bilateral renal lesions are too small to characte rize but are probably benign. There is no hydronephrosis. The prostate is enlarged, measuring 5.6 cm in transverse dimension. There is a moderate amount of stool within the colon and rectum. The proxima l jejunum is mildly dilated fluid-filled. Possible transition point within the mid jejunum on axial i mage 173 of 393 is noted. The distal small bowel is relatively decompressed. No fluid collections are present. There is no lymphadenopathy. Major vasculature is patent. There is minimal mesenteric stran ding. IMPRESSION: 1. Mildly dilated fluid-filled proximal jejunum with apparent transition point within the mid jejunum . Relatively decompressed distal small bowel. The findings may reflect a partial small bowel obstruct ion. 2. Significantly distended fluid-filled stomach. Fluid-filled, dilated distal esophagus. 3. No pneumatosis, free air or portal venous gas. No fluid collections. 4. Moderate amount of stool within the colon and rectum. ACT 112: Negative or not required by law. Electronically signed by: Ernesto Stephenson M.D. 06/08/2023 6:19 PM
--- NOTE | 2023-06-08 18:57 | Emergency Department Note ---
Impression & Plan SBO (small bowel obstruction) ED Provider Note NAME: SANDEEP FLORES AGE: 88 SEX: M : 1935 ARRIVES VIA: Walk-In INFORMANT: Patient, ED PROVIDER(S): Leonel Tsai MD CHIEF COMPLAINT: Abdominal pain HPI: This 88-year-old male presenting for abdominal pain. Patient was noted by his at this time. States that over the past 1 to 2 days he has had significant abdominal distention, abdominal pain. Patient reports that he is unable to have a bowel movement. attempted to give him oral medication to have mild bowel movement. This did not work so he came to the ER. He notes he has been having dry heaving without vomiting. Patient has had he has no acute complaints but his does tell me that he is significant dementia. ROS: See above HPI for pertinent positives & negatives. A total of 10 systems reviewed and were otherwise negative. PAST MEDICAL HISTORY: See Below PAST SURGICAL HISTORY: See Below FAMILY HISTORY: See Below SOCIAL HISTORY: See Below HOME MEDICATIONS: See Below ALLERGIES: See Below VITALS: See Below PHYSICAL EXAMINATION: General: resting comfortably in no acute distress Head: Normocephalic and atraumatic Eyes: Normal inspection, extraocular muscles intact Ear, nose, throat: Normal external exam Neck: Normal range of motion Respiratory: lungs clear to auscultation bilaterally Cardiovascular: Regular rate/rhythm, no murmur GI: Significantly distended abdomen, no significant tenderness Extremities: nontender, moves all extremities Neuro: Awake, alert, no focal deficits Skin: Warm, dry, and intact MEDICAL DECISION MAKING: This is an 88-year-old male presenting for abdominal pain and distention. -KUB ordered at triage does reveal significant distention and possible ileus versus SBO -CT scan does confirm this partial small bowel obstruction with transition point in the distal jejunum -Will place NG tube and admit to medicine after discussion with Dr. Lezama, surgery -Labs without leukocytosis, anemia or electrolyte imbalance. Creatinine is minimally elevated 1.55. -Patient be admitted to hospitalist service Differential diagnosis: SBO, volvulus, perforated viscus, diverticulitis, cholecystitis, appendicitis ER treatment provided: See below Diagnostics interpreted by me: ECG: None Cardiac Monitoring: An order was placed for continuous cardiac monitoring. The monitor shows a rate of 82 a second rhythm. Laboratory studies: As stated above and show below. Imaging studies: See below. Past Med/Surg History Medical History (Updated 06/09/23 @ 00:51 by Leonel Tsai MD) Elevated glucose Enteritis [place] (hard of hearing) History of neuropathy POST SHINGLES/USES PILLOW SUPPORT FOR LEFT ARM. Acid reflux Hiatal hernia Afib DX 3-4 YR AGO. NO HX CARDIOVERSION. HTN (hypertension) ? History of renal calculi History of excessive cerumen BILATERAL Mauro esophagus ? Dementia FOLLOWS NEURO. PT ABLE TO COMMUNICATE EFFECTIVELY. Surgical History History of cataract surgery right History of endoscopy WITH FIRST ENDOSCOPY MENTIONED BARRETS ESOPHAGUS. WITH SECOND ENDOSCOPY BARRETS ESOPHAGUS WASN'T MENTIONED/A HIATAL HERNIA WAS MENTIONED. History of laminectomy Laminectomy Decompress, Facetectomy, Foraminotomy Lumbar Seg History of colonoscopy History of appendectomy Family History Father Hypertension Myocardial infarction Brother Hypertension Son Colorectal cancer Other Family history non-contributory Family history of ischemic heart disease before age 50 Denies family history of Ovarian cancer Prostate cancer Breast cancer Social History Smoking Status: Former smoker Tobacco Type: Cigarettes Age Started Using Tobacco: 15; Age Quit Using Tobacco: 61; packs per day: 0.5; Cigarettes Per Day: 1960; Smoking End Date: 40 YEARS AGO; Second Hand Exposure: No; Do You Dip or Chew Tobacco: No; Hx Alcohol Use: No Hx Substance Use: No Preferred Language: French Communication Ability: Effective Communication Ability Comment: PT IS [place]/COMMUNICATION IS EFFECTIVE/SEE PAT COMMUNICATION NOTES. 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 caffeine: Yes (Coffee x2 in the am.) during the past year weight has: remained stable Dental Care, Regularly: Yes Physical Activity Frequency: Does not Exercise Seatbelt Use: always Sunscreen Use: No Assistive Devices: Glasses Allergies Allergies Allergy/AdvReac Type Severity Reaction Status Date / Time oxytetracycline Allergy Unknown MADE Verified 06/08/23 18:34 [From Terramycin] ILLNESS WORSE Home Meds Home Medications Medication Instructions Recorded Confirmed cholecalciferol (vitamin D3) 25 2,000 units PO QAM 03/29/19 06/08/23 mcg (1,000 unit) tablet (Vitamin D3) omeprazole 20 mg capsule,delayed 20 mg PO DAILY PRN Acid Reflux 09/05/22 06/08/23 release aspirin 81 mg tablet,delayed 81 mg PO QAM 01/16/23 06/08/23 release metoprolol succinate 25 mg 25 mg PO QAM 01/16/23 06/08/23 tablet,extended release 24 hr memantine 28 mg capsule 28 mg PO QAM 06/08/23 06/08/23 sprinkle,extended release 24hr Previous Rx's Medication Instructions Recorded lactulose 10 gram/15 mL (15 mL) 20 g (30 mL) PO QID PRN 04/04/23 oral solution constipation #600 mL Results & Data (ED) Vital Signs Vital Signs - 24 hr 06/08/23 15:59 06/08/23 17:40 06/08/23 18:13 Temperature 36.0 C L Temperature Source Temporal Artery Scan Pulse Rate 91 H Pulse Rate [Left Apical] 80 81 Pulse Rhythm Regular Pulse Strength Normal Respiratory Rate 20 16 15 Respiratory Effort / Characteristics Non-Labored Spontaneous Non-Labored Spontaneous Respiratory Depth Normal Normal Respiratory Pattern Regular Regular Blood Pressure 133/79 Blood Pressure [Right Arm] 125/86 147/89 H Blood Pressure Mean 97 Blood Pressure Mean [Right Arm] 99 108 Blood Pressure Position Sitting Pulse Oximetry 94 97 97 Oxygen Delivery Method Room Air Room Air Sepsis Recent Fever Within 48 Hours No Sepsis New/Unexplained Change in Mental Status No Sepsis Action Taken by Nursing No Action Required Laboratory Data 06/08/23 16:20 06/08/23 16:20 Lab Results 06/08/23 Range/Units 16:20 WBC 9.15 (4.8-10.8) K/ul RBC 4.63 L (4.70-6.10) M/uL Hgb 14.2 (14.0-18.0) g/dl Hct 43.3 (42.0-52.0) % MCV 93.5 (80.0-100.0) fL MCH 30.7 (25.0-34.0) pg MCHC 32.8 (32.0-36.0) g/dL RDW Std Deviation 45.5 (36.4-46.3) fL RDW Coeff of Brayan 13.3 (11.5-14.5) % Plt Count 240 (130-400) K/uL MPV 11.1 (9.4-12.4) fL Immature Gran % (Auto) 0.2 % Neut % (Auto) 76.6 % Lymph % (Auto) 9.0 % [place] % (Auto) 14.0 % Eos % (Auto) 0.0 % Baso % (Auto) 0.2 % Neut # (Auto) 7.01 H (1.40-6.50) K/uL Lymph # (Auto) 0.82 L (1.20-3.40) K/uL [place] # (Auto) 1.28 H (0.11-0.59) K/uL Eos # (Auto) 0.00 (0.00-0.50) K/uL Baso # (Auto) 0.02 (0.00-0.20) K/uL Immature Gran # (Auto) 0.02 (0.01-0.20) K/uL Sodium 139 (136-145) mmol/L Potassium 4.0 (3.5-5.1) mmol/L Chloride 102 (98-107) mmol/L Carbon Dioxide 27 (21-32) mmol/L Anion Gap 10 (3-11) BUN 34 H (6-23) mg/dl Creatinine 1.55 H (0.6-1.4) mg/dl Est Cr Clr Drug Dosing 30.4 ml/min Est GFR ( Amer) 45.6 ml/min Est GFR (Non-Af Amer) 39.4 ml/min BUN/Creatinine Ratio 21.9 H (10-20) Glucose 128 H (70-99(Fasting)) mg/dl Calcium 10.1 (8.6-10.3) mg/dl Total Bilirubin 1.0 (0.2-1.0) mg/dl AST 17 (13-39) U/L ALT 7 (7-52) U/L Alkaline Phosphatase 75 (34-104) U/L Total Protein 7.9 (6.0-8.3) gm/dl Albumin 4.4 (3.4-5.0) gm/dl Globulin 3.5 (2.5-4.0) gm/dl Albumin/Globulin Ratio 1.3 (0.9-2) Lipase 20 (11-82) U/L Administered Medications Lactated Ringer's (Lr) 1,000 mls @ 100 mls/hr IV .Q10H ENDY Stop: 07/08/23 19:29 Last Admin: 06/08/23 20:23 Dose: 100 mls/hr Documented By: ARS Discontinued Medications Benzocaine/Butamben/Tetracaine HCl (Benzocaine/Tetracain/Butam 50 Appln/5 Gm Can) Confirm Administered Dose 50 appln EXT .STK-MED ONE Stop: 06/08/23 18:44 Last Admin: 06/08/23 20:23 Dose: 50 appln Documented By: ARS Pantoprazole Sodium 40 mg/ (Syringe) 10 mls @ 5 mls/min IV NOW ONE Stop: 06/08/23 20:16 Last Admin: 06/08/23 20:41 Dose: 5 mls/min Documented By: ARS Ioversol (Optiray 320 500ml) 85 ml IV ONCE ONE Stop: 06/08/23 17:54 Last Admin: 06/08/23 17:54 Dose: 85 ml Documented By: EACinthya Lidocaine HCl (Lidocaine Viscous 2% 15 Ml Udc) Confirm Administered Dose 15 ml .ROUTE .STK-MED ONE Stop: 06/08/23 18:43 Last Admin: 06/08/23 20:23 Dose: 15 ml Documented By: ARS Imaging Data Radiologist's Impression: KUB X-Ray 06/08/23 16:04 KUB CLINICAL HISTORY: Constipation. COMPARISON STUDY: CT of the abdomen and pelvis and KUB April 02, 2023. Abdominal series April 18, 2023. FINDINGS: Marked gaseous distention of the stomach is again noted. Gastric distention has been shown on several prior exams. Several loops of mildly dilated small bowel within the left upper quadrant are present. There is a moderate amount of stool within the colon and rectum. No evidence for free air although sensitivity diminished on this supine exam. IMPRESSION: 1. Several loops of mildly dilated small bowel within left upper quadrant. The findings could reflect a partial small bowel obstruction or ileus. 2. Moderate amount of stool within the colon and rectum. 3. Marked gaseous distention of the stomach. Gaseous distention has been shown on several prior studies. ACT 112: Negative or not required by law. Electronically signed by: Ernesto Stephenson M.D. 06/08/2023 5:01 PM Abdomen/Pelvis CT 06/08/23 17:36 CT OF THE ABDOMEN AND PELVIS WITH CONTRAST CLINICAL HISTORY: abd pain, KUB shows possible ileus/SBO COMPARISON STUDY: CT of the abdomen and pelvis April 02, 2023. KUB performed earlier today. TECHNIQUE: Following IV administration of 85 mL of Optiray, axial images of the abdomen and pelvis were obtained from the lung bases to the proximal femurs. Images were reviewed in the axial, sagittal, and coronal planes. IV contrast was administered without complication. Automated exposure control was utilized for the study. A dose lowering technique was utilized adhering to the principles of ALARA. CT DOSE: 913.76 mGy.cm FINDINGS: No pneumatosis, free air or portal venous gas is present. As before, the distal esophagus is distended and fluid-filled. The stomach is markedly distended. Moderate amount of fluid within the stomach is present. Gastric distention was also shown on prior CT. No biliary or pancreatic ductal dilatation is present. Liver, spleen, adrenal glands and pancreas are unremarkable. No peripancreatic or pericholecystic stranding. Multiple subcentimeter bilateral renal lesions are too small to characterize but are probably benign. There is no hydronephrosis. The prostate is enlarged, measuring 5.6 cm in transverse dimension. There is a moderate amount of stool within the colon and rectum. The proximal jejunum is mildly dilated fluid-filled. Possible transition point within the mid jejunum on axial image 173 of 393 is noted. The distal small bowel is relatively decompressed. No fluid collections are present. There is no lymphadenopathy. Major vasculature is patent. There is minimal mesenteric stranding. IMPRESSION: 1. Mildly dilated fluid-filled proximal jejunum with apparent transition point within the mid jejunum. Relatively decompressed distal small bowel. The findings may reflect a partial small bowel obstruction. 2. Significantly distended fluid-filled stomach. Fluid-filled, dilated distal esophagus. 3. No pneumatosis, free air or portal venous gas. No fluid collections. 4. Moderate amount of stool within the colon and rectum. ACT 112: Negative or not required by law. Electronically signed by: Ernesto Stephenson M.D. 06/08/2023 6:19 PM Discharge Plan Visit Data Chief Complaint: Abdominal Pain Stated Complaint: ABD PAIN, TROUBLE BREATHING ED Provider: Leonel Tsai Discharge Problem: SBO (small bowel obstruction) Patient Disposition: Admitted As Inpatient Discharge Instructions Interventions: ED Discharge Assessment Last Done: 06/08/23 21:52
--- NOTE | 2023-06-08 18:58 | History & Physical Report ---
Date of Service June 08, 2023 Assessment & Plan (1) SBO (small bowel obstruction): Plan: -Admit to the PCU on tele -Currently stable with symptoms well controlled -Presented to the ED with 48 hours of progressive abd pain -Has been constipated for the past 72 hours -KUB and CT of the abd/pelvis are concerning for partial SBO at this time -Has a previous hx of SBO which have resolved with NG tube placement and bowel rest -General Surgery has been consulted and is following >No plans for OR at this time >Place NG tube >Bowel rest -NG tube will be placed shortly, we will start on low, intermittent suction -Strict NPO -Will place order for BL soft mitts for the patient's safety as he his known to pull out NG tubes and IV's on previous -Aspiration/fall precautions w/bed alarm -BL LANA's for DVT PPX -Will obtain Lactate on admission -Will keep on LR at 100 mL/hr while NPO -Will follow UA when obtained -AM CBC, CMP, mag (2) Abdominal pain: Plan: -See SBO -Will start with prn tylenol for pain -Will order prn antiemetics once ECG is obtained (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: Plan: -Will give 40 mg IV pantoprazole on admission -Continue 40 mg IV pantoprazole daily while NPO (4) Dementia: Plan: -Will hold home memantine for now -Resume when able to take PO intake (5) Constipation: Plan: -Continue to monitor for BM -Would defer to General Surgery regarding starting suppositories or enemas at this time -Conitnue IV hydration (6) Hypertension: Plan: -Currently hypertensive with systolics in the 170's -This is likely due to patient missing his am meds and discomfort from SBO -Will monitor BP once NG tube is placed and stomach is decompressed -Patient will be on the PCU in case IV antihypertensives are needed Plan The patient was discussed with Dr. Schumacher at the time of the admission History of Present Illness Chief Complaint: abdominal pain Primary Care Provider: JAKE Martinez Nader is an 88 year old male with a PMH significant for previous SBO, Mauro's esophagus, chronic pain syndrome, dementia, GERD, hyperlipidemia, hypertension, vitamin D deficiency, polyneuropathy, history of gastric ulcer who presented to the [facility] ED on 06/08/23 with complaints of abdominal pain. He was noted to have a HR of 91 on arrival but was otherwise stable. Labs including CBC, CMP, and lipase were unremarkable. KUB was read as "1. Several loops of mildly dilated small bowel within left upper quadrant. The findings could reflect a partial small bowel obstruction or ileus. 2. Moderate amount of stool within the colon and rectum. 3. Marked gaseous distention of the stomach. Gaseous distention has been shown on several prior studies.". CT of the abd/pelvis w/con was read as "1. Mildly dilated fluid-filled proximal jejunum with apparent transition point within the mid jejunum. Relatively decompressed distal small bowel. The findings may reflect a partial small bowel obstruction. 2. Significantly distended fluid-filled stomach. Fluid-filled, dilated distal esophagus. 3. No pneumatosis, free air or portal venous gas. No fluid collections. 4. Moderate amount of stool within the colon and rectum.". The ED staff spoke with General Surgery who recommends NPO status with NG tube placement, they will follow. Prior to admission the patient had an NG tube placed. At the time of the exam the patient was sitting in bed in no acute distress with his bedside. History was obtained from his due to his baseline Dementia. She states that the patient started to develop mild abdominal pain approximately 48 hours ago. He has not had a bowel movement in over 72 hours. She gave him a dose of lactulose yesterday to try and improve his constipation. This am the patient only took one bite of toast but has increased abdominal pain promoting ED evaluation. The patient is currently comfortable and denies pain. His states the last time he was admitted for SBO he was screaming in pain. She explained that he pulled his NG tube out the last admission, as-well-as his IV's. We discussed placing soft mitts on his hands to prevent him from doing this again, she is in agreement. He has a DNR/DNI and his is his POA. Please refer to Dr. Schumacher's attestation for any changes to the treatment plan Allergies Allergy/AdvReac Type Severity Reaction Status Date / Time oxytetracycline Allergy Unknown MADE Verified 06/08/23 18:34 [From Terramycin] ILLNESS WORSE Home Medications Medication Instructions Recorded Confirmed Type cholecalciferol (vitamin D3) 25 2,000 units PO QAM 03/29/19 06/08/23 History mcg (1,000 unit) tablet (Vitamin D3) omeprazole 20 mg capsule,delayed 20 mg PO DAILY PRN Acid Reflux 09/05/22 06/08/23 History release aspirin 81 mg tablet,delayed 81 mg PO QAM 01/16/23 06/08/23 History release metoprolol succinate 25 mg 25 mg PO QAM 01/16/23 06/08/23 History tablet,extended release 24 hr lactulose 10 gram/15 mL (15 mL) 20 g (30 mL) PO QID PRN 04/04/23 06/08/23 Rx oral solution constipation #600 mL memantine 28 mg capsule 28 mg PO QAM 06/08/23 06/08/23 History sprinkle,extended release 24hr Past Med/Surg History Medical History (Updated 06/09/23 @ 00:51 by Leonel Tsai MD) Elevated glucose Enteritis [place] (hard of hearing) History of neuropathy POST SHINGLES/USES PILLOW SUPPORT FOR LEFT ARM. Acid reflux Hiatal hernia Afib DX 3-4 YR AGO. NO HX CARDIOVERSION. HTN (hypertension) ? History of renal calculi History of excessive cerumen BILATERAL Mauro esophagus ? Dementia FOLLOWS NEURO. PT ABLE TO COMMUNICATE EFFECTIVELY. Surgical History History of cataract surgery right History of endoscopy WITH FIRST ENDOSCOPY MENTIONED BARRETS ESOPHAGUS. WITH SECOND ENDOSCOPY BARRETS ESOPHAGUS WASN'T MENTIONED/A HIATAL HERNIA WAS MENTIONED. History of laminectomy Laminectomy Decompress, Facetectomy, Foraminotomy Lumbar Seg History of colonoscopy History of appendectomy Family History Father Hypertension Myocardial infarction Brother Hypertension Son Colorectal cancer Other Family history non-contributory Family history of ischemic heart disease before age 50 Denies family history of Ovarian cancer Prostate cancer Breast cancer Social History Smoking Status: Former smoker Tobacco Type: Cigarettes Age Started Using Tobacco: 15; Age Quit Using Tobacco: 61; packs per day: 0.5; Cigarettes Per Day: 1960; Smoking End Date: 40 YEARS AGO; Second Hand Exposure: No; Do You Dip or Chew Tobacco: No; Hx Alcohol Use: No Hx Substance Use: No Preferred Language: Frisian Communication Ability: Effective Communication Ability Comment: PT IS [place]/COMMUNICATION IS EFFECTIVE/SEE PAT COMMUNICATION NOTES. Visual Impairment: Limited Hearing Ability: Hard of Hearing Armament Repairer Required: No Beliefs That Will Affect Care: None marital status: Current Living Situation: Spouse Current Living Situation Comment: AND DAUGHTER current occupational status: retired Other Information That Helps Us Care for You: No Feels Safe at Home: Yes Safety Concerns: Feels Safe At This Time Childhood Exposure to Second-Hand Smoke: Yes Diet: regular Diet Comment: well balanced. caffeine: Yes (Coffee x2 in the am.) during the past year weight has: remained stable Dental Care, Regularly: Yes Physical Activity Frequency: Does not Exercise Seatbelt Use: always Sunscreen Use: No Assistive Devices: Glasses Physical Exam Physical Exam: Physical Exam: General: In no acute distress, stated age, non-toxic appearing HEENT: Normocephalic, atraumatic, no scleral icterus, pupils around round, symmetrical, and reactive to light, dry mucus membranes, trachea midline, no thyromegaly Chest/Pulm: No respiratory distress, symmetrical chest expansion, clear breath sounds throughout Cardiac: RRR, no murmurs noted Abdomen: Distended abdomen, hypoactive bowel sounds, firm, tympanic to perc ussion throughout, non-tender to palpation in all abdominal Musculoskeletal: Symmetrical and without signs of acute trauma, upper and lower extremities with full ROM, no atrophy, spasticity, or flaccidity Extremities: Radial, dorsalis pedis, and posterior tibial pulses are intact and symmetrical, no edema noted in the BL LE's Skin: Warm, dry, no rashes , lesions, or scars noted Neuro: Alert and oriented to person only (is his baseline), no focal defects, no tremors noted Psych: No acute distress, pleasantly confused and cooperative during the exam Results & Data Results & Data Vital Signs (Past 12 Hours) Vital Signs Temp Pulse Pulse Resp BP BP Pulse Ox 06/08/23 18:13 81 15 147/89 H 97 06/08/23 17:40 80 16 125/86 97 06/08/23 15:59 36.0 C L 91 H 20 133/79 94 O2 Del Method 06/08/23 18:13 06/08/23 17:40 Room Air 06/08/23 15:59 Room Air Laboratory Results Abnormal lab results 06/08/23 Range/Units 16:20 RBC 4.63 L (4.70-6.10) M/uL Neut # (Auto) 7.01 H (1.40-6.50) K/uL Lymph # (Auto) 0.82 L (1.20-3.40) K/uL Wirt # (Auto) 1.28 H (0.11-0.59) K/uL BUN 34 H (6-23) mg/dl Creatinine 1.55 H (0.6-1.4) mg/dl BUN/Creatinine Ratio 21.9 H (10-20) Glucose 128 H (70-99(Fasting)) mg/dl Diagnostic Findings KUB X-Ray 06/08/23 16:04 KUB CLINICAL HISTORY: Constipation. COMPARISON STUDY: CT of the abdomen and pelvis and KUB April 02, 2023. Abdominal series April 18, 2023. FINDINGS: Marked gaseous distention of the stomach is again noted. Gastric distention has been shown on several prior exams. Several loops of mildly dilated small bowel within the left upper quadrant are present. There is a moderate amount of stool within the colon and rectum. No evidence for free air although sensitivity diminished on this supine exam. IMPRESSION: 1. Several loops of mildly dilated small bowel within left upper quadrant. The findings could reflect a partial small bowel obstruction or ileus. 2. Moderate amount of stool within the colon and rectum. 3. Marked gaseous distention of the stomach. Gaseous distention has been shown on several prior studies. ACT 112: Negative or not required by law. Electronically signed by: Ernesto Stephenson M.D. 06/08/2023 5:01 PM Abdomen/Pelvis CT 06/08/23 17:36 CT OF THE ABDOMEN AND PELVIS WITH CONTRAST CLINICAL HISTORY: abd pain, KUB shows possible ileus/SBO COMPARISON STUDY: CT of the abdomen and pelvis April 02, 2023. KUB performed earlier today. TECHNIQUE: Following IV administration of 85 mL of Optiray, axial images of the abdomen and pelvis were obtained from the lung bases to the proximal femurs. Images were reviewed in the axial, sagittal, and coronal planes. IV contrast was administered without complication. Automated exposure control was utilized for the study. A dose lowering technique was utilized adhering to the principles of ALARA. CT DOSE: 913.76 mGy.cm FINDINGS: No pneumatosis, free air or portal venous gas is present. As before, the distal esophagus is distended and fluid-filled. The stomach is markedly distended. Moderate amount of fluid within the stomach is present. Gastric distention was also shown on prior CT. No biliary or pancreatic ductal dilatation is present. Liver, spleen, adrenal glands and pancreas are unremarkable. No peripancreatic or pericholecystic stranding. Multiple subcentimeter bilateral renal lesions are too small to characterize but are probably benign. There is no hydronephrosis. The prostate is enlarged, measuring 5.6 cm in transverse dimension. There is a moderate amount of stool within the colon and rectum. The proximal jejunum is mildly dilated fluid-filled. Possible transition point within the mid jejunum on axial image 173 of 393 is noted. The distal small bowel is relatively decompressed. No fluid collections are present. There is no lymphadenopathy. Major vasculature is patent. There is minimal mesenteric stranding. IMPRESSION: 1. Mildly dilated fluid-filled proximal jejunum with apparent transition point within the mid jejunum. Relatively decompressed distal small bowel. The findings may reflect a partial small bowel obstruction. 2. Significantly distended fluid-filled stomach. Fluid-filled, dilated distal esophagus. 3. No pneumatosis, free air or portal venous gas. No fluid collections. 4. Moderate amount of stool within the colon and rectum. ACT 112: Negative or not required by law. Electronically signed by: Ernesto Stephenson M.D. 06/08/2023 6:19 PM ECG Additional Comments: Will obtain at the time of the admission Code Status & VTE Plan Code Status DNR/DNI VTE Prophylaxis Plan VTE Prophylaxis will be ordered: Yes Supervising Physician Co-Signing Physician Notes Attending addendum: I have physically seen this patient, have supervised the GEE's activities, and agree with the H&P unless as otherwise noted. Assessment and Plan: Small bowel obstruction- N.p.o. CT scan of abdomen and pelvis consistent with partial small bowel obstruction with transition point in the mid jejunum. Fluid-filled distal esophagus and stomach Significant stool retention Patient had NG tube placed to low intermittent suction, which was able to get 1 L of fluid out relatively quickly Patient pulled the first NG tube out, and second NG tube was able to get about 250 cc out Patient pulled his third and fourth NG tube out, before any further fluid could be pulled out. 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- Pantoprazole 40 mg IV daily Dementia- Patient still quite pleasant He successfully pulled out 4 NG tubes, in spite of having mittens for the first 1, and bilateral upper extremity restrictions for the last 3 Hypertension- Patient was admitted to the PCU in the event that IV medications are needed to control blood pressure, which can be given on a medical surgical floor PG Care Time/CCT Total # of Minutes Spent Total Time Spent with Patient: Total time spent is greater than 50% in coordination of care (as documented) at patient's floor/unit and/or counseling patient: Coding [place] [address] INT INP/OBS CARE MIN Patient Type Established Medical Decision Making High Complexity Diagnoses SBO (small bowel obstruction) K56.609 Abdominal pain R10.84 Abdominal location: generalized 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 K22.70 Dementia F03.90 Dementia behavioral or psychological symptom: unspecified whether behavioral, psychotic, or mood disturbance or anxiety Dementia severity: unspecified severity Dementia type: unspecified type Constipation K59.00 Essential hypertension I10 Hypertension type: essential hypertension (2) Abdominal pain Abdominal location: generalized Qualified Code(s): R10.84 - Generalized abdominal pain (4) Dementia Dementia behavioral or psychological symptom: unspecified whether behavioral, psychotic, or mood disturbance or anxiety Dementia severity: unspecified severity Dementia type: unspecified type Qualified Code(s): F03.90 - Unspecified dementia, unspecified severity, without behavioral disturbance, psychotic disturbance, mood disturbance, and anxiety (6) Hypertension Hypertension type: essential hypertension Qualified Code(s): I10 - Essential (primary) hypertension
[2023-06-08] MEDS ORDERED: ACETAMINOPHEN 1,000 MG/100 ML VIAL IV PRN (19:24)
[2023-06-08] MEDS: LIDOCAINE VISCOUS 2% 15 ML UDC ONE (20:23)
[2023-06-08] MEDS: LACTATED RINGER'S 1,000 ML IV SCH (20:23)
[2023-06-08] MEDS: BENZOCAINE/TETRACAIN/BUTAM 50 APPLN/5 GM CAN EXT ONE (20:23)
[2023-06-08] MEDS: PANTOprazole 40 MG in SYRINGE 0 ML IV ONE (20:41)
[2023-06-09 05:17] LABS: Appearance Urine Clear (Clear); Bilirubin Urine Negative (Negative); Blood Urine Trace-intact (Negative); Color Urine Yellow; Glucose Urine UA Negative (Negative); Ketones Urine Negative (Negative); Leukocyte Esterase Urine Negative (Negative); Nitrite Urine Negative (Negative); Protein Urine 1+ (Negative); Urobilinogen Urine Negative (Negative); pH Urine 5.5 (4.5-7.5)
[2023-06-09 05:34] LABS: Bacteria Urine 1+ (Negative); Mucus Urine Present (None Prsent)
[2023-06-09 05:35] LABS: Epithelial Cell Urine 0-5 /lpf (0-5); RBC Urine 0-4 /hpf (0-4); WBC Urine 0-5 /hpf (0-5)
--- NOTE | 2023-06-09 06:45 | XRay Report ---
KUB HISTORY: NG tube confirmation COMPARISON: Abdomen and pelvis CT 06/08/2023. FINDINGS: Markedly distended gas and fluid-filled stomach is again noted. Nasogastric tube is looped within the small hiatus hernia with the tip terminating in the hiatus hernia. The heart is enlarged. Mild dependent changes seen within the lung bases. No renal calculi. No ureteral calculi. No pneumop eritoneum or pneumatosis. IMPRESSION: Nasogastric tube is curled within the small hiatus hernia with the tip terminating in the hiatus michela ia. The stomach remains markedly distended. Therefore, this should be advanced. ACT 112: Negative or not required by law. Electronically signed by: Atilio Garcia M.D. 06/09/2023 6:43 AM
[2023-06-09 07:10] LABS: Basophils # (auto) 0.02 K/uL (0.00-0.20); Basophils % (auto) 0.3 %; Eosinophils # (auto) 0.08 K/uL (0.00-0.50); Hematocrit (blood only) 37.4 % (42.0-52.0); Hemoglobin 12.4 g/dl (14.0-18.0); Immature Granulocytes # (auto) 0.03 K/uL (0.01-0.20); Immature Granulocytes % (auto) 0.4 %; Lymphocytes # (auto) 1.49 K/uL (1.20-3.40); Lymphocytes % (auto) 19.5 %; Mean Corpuscular Hemoglobin 30.4 pg (25.0-34.0); Mean Corpuscular Hgb Conc 33.2 g/dL (32.0-36.0); Mean Corpuscular Volume 91.7 fL (80.0-100.0); Mean Platelet Volume 11.3 fL (9.4-12.4); Monocytes # (auto) 1.23 K/uL (0.11-0.59); Monocytes % (auto) 16.1 %; Neutrophils # (auto) 4.79 K/uL (1.40-6.50); Neutrophils % (auto) 62.7 %; Platelet Count 189 K/uL (130-400); RDW Coefficient of Variation 13.1 % (11.5-14.5); RDW Standard Deviation 44.1 fL (36.4-46.3); Red Blood Count 4.08 M/uL (4.70-6.10); White Blood Count 7.64 K/ul (4.8-10.8)
[2023-06-09 07:40] LABS: Albumin Globulin Ratio 1.3 (0.9-2); Albumin Level 3.5 gm/dl (3.4-5.0); BUN Creatinine Ratio 26.5 (10-20); Bilirubin,Total 0.8 mg/dl (0.2-1.0); Calcium 8.8 mg/dl (8.6-10.3); Creatinine Clr Calc Pharmacy 40.3 ml/min; Est GFR (African American) 64.1 ml/min; Est GFR (Non-African American) 55.3 ml/min; Globulin 2.7 gm/dl (2.5-4.0); Magnesium 1.9 mg/dl (1.7-2.4); Potassium 3.8 mmol/L (3.5-5.1); Total Protein 6.2 gm/dl (6.0-8.3)
--- NOTE | 2023-06-09 07:57 | XRay Report ---
KUB HISTORY: NG tube placement confirmation COMPARISON: KUB 06/08/2023. FINDINGS: Markedly distended and gas-filled stomach again noted. Nasogastric tube is looped within th e small hiatus hernia with the tip curling back into the proximal esophagus. The tip is not included on this study. No renal calculi. No ureteral calculi. No pneumoperitoneum or pneumatosis. IMPRESSION: 1. Markedly distended and gas-filled stomach again noted. 2. Nasogastric tube is looped within the small hiatus hernia/distal esophagus with the tip curling ba ck into the proximal esophagus. ACT 112: Negative or not required by law. Electronically signed by: Atilio Garcia M.D. 06/09/2023 7:56 AM
--- NOTE | 2023-06-09 11:49 | Surgery Consultation ---
Date of Consultation June 09, 2023 Assessment & Plan (1) SBO (small bowel obstruction): probably not a surgical candidate. will follow along. IVF. NPO. since no vomiting we can probably wait and see how he does. repeat KUB tomorrow. History of Present Illness Attending Physician: Ryan Frazier MD History of Present Illness 88 y/o pt with dementia and an extensive medical history. presented with abdominal pain. w/u shows distended stomach and likely SBO. he apparently has had this in the past managed with conservative management. currently pleasantly confused. does not appear to be in distress. he has removed his NGT and IV. Allergies Allergy/AdvReac Type Severity Reaction Status Date / Time oxytetracycline Allergy Unknown MADE Verified 06/08/23 18:34 [From Terramycin] ILLNESS WORSE Home Medications Medication Instructions Recorded Confirmed Type cholecalciferol (vitamin D3) 25 2,000 units PO QAM 03/29/19 06/08/23 History mcg (1,000 unit) tablet (Vitamin D3) omeprazole 20 mg capsule,delayed 20 mg PO DAILY PRN Acid Reflux 09/05/22 06/08/23 History release aspirin 81 mg tablet,delayed 81 mg PO QAM 01/16/23 06/08/23 History release metoprolol succinate 25 mg 25 mg PO QAM 01/16/23 06/08/23 History tablet,extended release 24 hr lactulose 10 gram/15 mL (15 mL) 20 g (30 mL) PO QID PRN 04/04/23 06/08/23 Rx oral solution constipation #600 mL memantine 28 mg capsule 28 mg PO QAM 06/08/23 06/08/23 History sprinkle,extended release 24hr Patient History Medical History (Updated 06/09/23 @ 00:51 by Leonel Tsai MD) Elevated glucose Enteritis [place] (hard of hearing) History of neuropathy POST SHINGLES/USES PILLOW SUPPORT FOR LEFT ARM. Acid reflux Hiatal hernia Afib DX 3-4 YR AGO. NO HX CARDIOVERSION. HTN (hypertension) ? History of renal calculi History of excessive cerumen BILATERAL Mauro esophagus ? Dementia FOLLOWS NEURO. PT ABLE TO COMMUNICATE EFFECTIVELY. Surgical History History of cataract surgery right History of endoscopy WITH FIRST ENDOSCOPY MENTIONED BARRETS ESOPHAGUS. WITH SECOND ENDOSCOPY BARRETS ESOPHAGUS WASN'T MENTIONED/A HIATAL HERNIA WAS MENTIONED. History of laminectomy Laminectomy Decompress, Facetectomy, Foraminotomy Lumbar Seg History of colonoscopy History of appendectomy Family History Father Hypertension Myocardial infarction Brother Hypertension Son Colorectal cancer Other Family history non-contributory Family history of ischemic heart disease before age 50 Denies family history of Ovarian cancer Prostate cancer Breast cancer Social History Smoking Status: Former smoker Tobacco Type: Cigarettes Age Started Using Tobacco: 15; Age Quit Using Tobacco: 61; packs per day: 0.5; Cigarettes Per Day: 1960; Smoking End Date: 40 YEARS AGO; Second Hand Exposure: No; Do You Dip or Chew Tobacco: No; Hx Alcohol Use: No Hx Substance Use: No Preferred Language: Mongolian Communication Ability: Effective Communication Ability Comment: PT IS [place]/COMMUNICATION IS EFFECTIVE/SEE PAT COMMUNICATION NOTES. Visual Impairment: Limited Hearing Ability: Hard of Hearing Managing Broker Required: No Beliefs That Will Affect Care: None marital status: Current Living Situation: Spouse Current Living Situation Comment: AND DAUGHTER current occupational status: retired Other Information That Helps Us Care for You: No Feels Safe at Home: Yes Safety Concerns: Feels Safe At This Time Childhood Exposure to Second-Hand Smoke: Yes Diet: regular Diet Comment: well balanced. caffeine: Yes (Coffee x2 in the am.) during the past year weight has: remained stable Dental Care, Regularly: Yes Physical Activity Frequency: Does not Exercise Seatbelt Use: always Sunscreen Use: No Assistive Devices: Glasses Physical Exam Physical Exam: confused. no acute distress Eyes: PERRL, conjunctivae normal, anicteric sclerae EOM intact bilaterally ENMT: external ear and nose normal, oropharynx normal Ears: no hearing impairment Neck: trachea midline, no thyromegaly Respiratory: normal respiratory effort; no respiratory distress and does not use accessory muscles Cardiovascular: Rate/Rhythm: regular rate and regular rhythm Gastrointestinal (Abdomen): soft. nt. minimal distension Skin: no rashes, warm and dry Psychiatric: Orientation: alert, oriented x 3 and cooperative Results & Data Vital Signs (Past 12 Hours) Vital Signs Pulse Pulse Resp BP BP Pulse Ox Pulse Ox 06/09/23 11:30 74 15 141/116 H 98 06/09/23 10:11 79 12 06/09/23 10:01 141/116 H 06/09/23 09:46 66 L 06/09/23 08:01 160/91 H 06/09/23 08:01 79 20 99 06/09/23 08:00 94 H 25 H 97 06/09/23 07:45 74 06/09/23 06:00 79 20 94 06/09/23 04:00 72 18 135/78 91 06/09/23 02:00 84 22 149/89 H 96 06/09/23 00:25 82 06/09/23 00:12 82 24 138/87 95 06/09/23 00:01 83 16 137/91 97 06/09/23 00:00 95 06/08/23 23:49 83 23 145/96 H 97 O2 Del Method O2 Del Method 06/09/23 11:30 Room Air 06/09/23 10:11 06/09/23 10:01 06/09/23 09:46 06/09/23 08:01 06/09/23 08:01 06/09/23 08:00 06/09/23 07:45 06/09/23 06:00 Room Air 06/09/23 04:00 Room Air 06/09/23 02:00 Room Air 06/09/23 00:25 06/09/23 00:12 Room Air 06/09/23 00:01 Room Air 06/09/23 00:00 Room Air 06/08/23 23:49 Room Air PG Care Time/CCT Total # of Minutes Spent Total Time Spent with Patient: Total time spent is greater than 50% in coordination of care (as documented) at patient's floor/unit and/or counseling patient: Coding Level of Care Code 50931 INT INP/OBS CARE 3/75MIN Diagnoses SBO (small bowel obstruction) K56.609
--- NOTE | 2023-06-09 12:01 | Hospitalist Progress Note ---
Date of Service June 09, 2023 Assessment & Plan (1) SBO (small bowel obstruction): Plan: -Currently stable with symptoms well controlled -KUB and CT of the abd/pelvis are concerning for partial SBO at this time -Has a previous hx of SBO which have resolved with NG tube placement and bowel rest -General Surgery has been consulted and is following -Initially had an NG tube, however patient removed NG tube -Evaluated by general surgery, no surgical plans for now -Repeat KUB tomorrow- -continue gentle hydration with Ringer's lactate (2) Abdominal pain: Plan: -See SBO -Will start with prn tylenol for pain -Will order prn antiemetics once ECG is obtained (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: Plan: -Will give 40 mg IV pantoprazole on admission -Continue 40 mg IV pantoprazole daily while NPO (4) Dementia: Plan: -Will hold home memantine for now -Resume when able to take PO intake (5) Constipation: Plan: -Continue to monitor for BM -Would defer to General Surgery regarding starting suppositories or enemas at this time -Conitnue IV hydration (6) Hypertension: Plan: -Currently hypertensive with systolics in the 170's -This is likely due to patient missing his am meds and discomfort from SBO -Will monitor BP once NG tube is placed and stomach is decompressed -Patient will be on the PCU in case IV antihypertensives are needed Plan Continue to monitor, repeat KUB tomorrow Admission and Anticipated Discharge Date Admission Date: June 08, 2023 Subjective Patient seen and examined, he is demented and confused Review of Systems Review of Systems: Unable to obtain due to dementia Physical Exam Physical Exam: The patient is awake, confused HEENT--PERRL, EOMI, mucous membranes and oropharynx mildly dry Neck--supple. No JVD. No bruits. Thyroid normal, trachea midline, no adenopathy. Heart--normal S1 and S2. No murmurs, rubs or gallops. Lungs--clear bilaterally, no respiratory distress, no accessory muscle use. Abdomen--normal bowel sounds and soft. Mild epigastric and left sided abdominal pain Extremities--no cyanosis or clubbing. No edema. Dermatologic--normal skin turgor, normal color, no abnormal lymph nodes, no rash. Neurologic--cranial nerves II through XII grossly intact. Rheumatologic--normal range of motion. Psychiatric--normal affect. Results & Data Results & Data Vital Signs (Past 12 Hours) Vital Signs Pulse Pulse Resp BP BP Pulse Ox Pulse Ox 06/09/23 11:30 74 15 141/116 H 98 06/09/23 10:11 79 12 06/09/23 10:01 141/116 H 06/09/23 09:46 66 L 06/09/23 08:01 160/91 H 06/09/23 08:01 79 20 99 06/09/23 08:00 94 H 25 H 97 06/09/23 07:45 74 06/09/23 06:00 79 20 94 06/09/23 04:00 72 18 135/78 91 06/09/23 02:00 84 22 149/89 H 96 06/09/23 00:25 82 06/09/23 00:12 82 24 138/87 95 06/09/23 00:01 83 16 137/91 97 06/09/23 00:00 95 O2 Del Method O2 Del Method 06/09/23 11:30 Room Air 06/09/23 10:11 06/09/23 10:01 06/09/23 09:46 06/09/23 08:01 06/09/23 08:01 06/09/23 08:00 06/09/23 07:45 06/09/23 06:00 Room Air 06/09/23 04:00 Room Air 06/09/23 02:00 Room Air 06/09/23 00:25 06/09/23 00:12 Room Air 06/09/23 00:01 Room Air 06/09/23 00:00 Room Air PG Care Time/CCT Total # of Minutes Spent Total Time Spent with Patient: Total time spent is greater than 50% in coordination of care (as documented) at patient's floor/unit and/or counseling patient: Coding Level of Care Code 71733 SUB INP/OBS CARE 2/35MIN Diagnoses SBO (small bowel obstruction) K56.609 Abdominal pain R10.84 Abdominal location: generalized 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 K22.70 Dementia F03.90 Dementia behavioral or psychological symptom: unspecified whether behavioral, psychotic, or mood disturbance or anxiety Dementia severity: unspecified severity Dementia type: unspecified type Constipation K59.00 Essential hypertension I10 Hypertension type: essential hypertension Time Spent (min) 35 (2) Abdominal pain Abdominal location: generalized Qualified Code(s): R10.84 - Generalized abdominal pain (4) Dementia Dementia behavioral or psychological symptom: unspecified whether behavioral, psychotic, or mood disturbance or anxiety Dementia severity: unspecified severity Dementia type: unspecified type Qualified Code(s): F03.90 - Unspecified dementia, unspecified severity, without behavioral disturbance, psychotic disturbance, mood disturbance, and anxiety (6) Hypertension Hypertension type: essential hypertension Qualified Code(s): I10 - Essential (primary) hypertension
[2023-06-09] MEDS: PANTOprazole 40 MG in SYRINGE 0 ML IV SCH (12:36)
[2023-06-10 07:21] LABS: Basophils # (auto) 0.05 K/uL (0.00-0.20); Basophils % (auto) 0.7 %; Eosinophils # (auto) 0.25 K/uL (0.00-0.50); Eosinophils % (auto) 3.7 %; Hematocrit (blood only) 36.4 % (42.0-52.0); Hemoglobin 12.1 g/dl (14.0-18.0); Immature Granulocytes # (auto) 0.02 K/uL (0.01-0.20); Immature Granulocytes % (auto) 0.3 %; Lymphocytes # (auto) 1.67 K/uL (1.20-3.40); Lymphocytes % (auto) 24.6 %; Mean Corpuscular Hemoglobin 30.4 pg (25.0-34.0); Mean Corpuscular Hgb Conc 33.2 g/dL (32.0-36.0); Mean Corpuscular Volume 91.5 fL (80.0-100.0); Mean Platelet Volume 10.7 fL (9.4-12.4); Monocytes # (auto) 0.91 K/uL (0.11-0.59); Monocytes % (auto) 13.4 %; Neutrophils # (auto) 3.89 K/uL (1.40-6.50); Neutrophils % (auto) 57.3 %; Platelet Count 186 K/uL (130-400); RDW Coefficient of Variation 12.9 % (11.5-14.5); RDW Standard Deviation 43.1 fL (36.4-46.3); Red Blood Count 3.98 M/uL (4.70-6.10); White Blood Count 6.79 K/ul (4.8-10.8)
[2023-06-10 07:58] LABS: Albumin Globulin Ratio 1.3 (0.9-2); Albumin Level 3.2 gm/dl (3.4-5.0); BUN Creatinine Ratio 23.6 (10-20); Calcium 8.5 mg/dl (8.6-10.3); Creatinine Clr Calc Pharmacy 42.9 ml/min; Est GFR (African American) 69.1 ml/min; Est GFR (Non-African American) 59.6 ml/min; Globulin 2.5 gm/dl (2.5-4.0); Magnesium 1.9 mg/dl (1.7-2.4); Potassium 3.8 mmol/L (3.5-5.1); Total Protein 5.7 gm/dl (6.0-8.3)
--- NOTE | 2023-06-10 08:52 | XRay Report ---
KUB CLINICAL HISTORY: Small bowel obstruction. FINDINGS: An AP, portable, supine abdominal radiograph is compared to abdominal radiographs and CT da august 06/08/2023. There is marked gaseous distention of the stomach. Distended and gas-filled loops of s mall bowel indicate persistent obstruction. No evidence of intraperitoneal free air is seen on this s upine image. There are no abnormal abdominal calcifications. Excreted IV contrast fills the bladder. A phlebolith is noted in the pelvis. The skeletal structures are osteopenic and appear intact. There is moderate lumbosacral spondylosis. IMPRESSION: Persistent small bowel obstruction. Electronically signed by: Micheal Woods M.D. 06/10/2023 8:51 AM
--- NOTE | 2023-06-10 11:14 | Hospitalist Progress Note ---
Date of Service June 10, 2023 Assessment & Plan (1) SBO (small bowel obstruction): Plan: -Currently stable with symptoms well controlled -KUB and CT of the abd/pelvis showed evidence of small bowel obstruction -Has a previous hx of SBO which have resolved with NG tube placement and bowel rest -General Surgery has been consulted and is following -Initially had an NG tube, however patient removed NG tube -Evaluated by general surgery, no surgical plans for now -Repeat KUB today, 06/10/2023 showed persistent small bowel obstruction -continue gentle hydration with Ringer's lactate -Appreciate surgery commendations (2) Abdominal pain: Plan: -See SBO -Will start with prn tylenol for pain -Will order prn antiemetics once ECG is obtained (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: Plan: -Will give 40 mg IV pantoprazole on admission -Continue 40 mg IV pantoprazole daily while NPO (4) Dementia: Plan: -Will hold home memantine for now -Resume when able to take PO intake (5) Constipation: Plan: -Continue to monitor for BM -Would defer to General Surgery regarding starting suppositories or enemas at this time -Conitnue IV hydration (6) Hypertension: Plan: -Blood pressure is now under better control Plan Continue to monitor, repeat KUB tomorrow Admission and Anticipated Discharge Date Admission Date: June 08, 2023 Subjective Patient seen and examined, he is demented and confused, said he wanted to go to the bathroom Review of Systems Review of Systems: Unable to obtain due to dementia Physical Exam Physical Exam: The patient is awake, confused HEENT--PERRL, EOMI, mucous membranes and oropharynx mildly dry Neck--supple. No JVD. No bruits. Thyroid normal, trachea midline, no adenopathy. Heart--normal S1 and S2. No murmurs, rubs or gallops. Lungs--clear bilaterally, no respiratory distress, no accessory muscle use. Abdomen--normal bowel sounds and soft. Mild epigastric and left sided abdominal pain Extremities--no cyanosis or clubbing. No edema. Dermatologic--normal skin turgor, normal color, no abnormal lymph nodes, no rash. Neurologic--cranial nerves II through XII grossly intact. Rheumatologic--normal range of motion. Psychiatric--normal affect. Results & Data Results & Data Vital Signs (Past 12 Hours) Vital Signs Pulse Pulse Resp BP Pulse Ox Pulse Ox O2 Del Method 06/10/23 07:31 82 06/10/23 04:48 66 20 122/83 94 Room Air 06/10/23 01:17 80 06/10/23 00:00 95 O2 Del Method 06/10/23 07:31 06/10/23 04:48 06/10/23 01:17 06/10/23 00:00 Room Air PG Care Time/CCT Total # of Minutes Spent Total Time Spent with Patient: Total time spent is greater than 50% in coordination of care (as documented) at patient's floor/unit and/or counseling patient: Coding Level of Care Code 82115 SUB INP/OBS CARE 2/35MIN Diagnoses SBO (small bowel obstruction) K56.609 Abdominal pain R10.84 Abdominal location: generalized 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 K22.70 Dementia F03.90 Dementia behavioral or psychological symptom: unspecified whether behavioral, psychotic, or mood disturbance or anxiety Dementia severity: unspecified severity Dementia type: unspecified type Constipation K59.00 Essential hypertension I10 Hypertension type: essential hypertension Time Spent (min) 35 (2) Abdominal pain Abdominal location: generalized Qualified Code(s): R10.84 - Generalized abdominal pain (4) Dementia Dementia behavioral or psychological symptom: unspecified whether behavioral, psychotic, or mood disturbance or anxiety Dementia severity: unspecified severity Dementia type: unspecified type Qualified Code(s): F03.90 - Unspecified dementia, unspecified severity, without behavioral disturbance, psychotic disturbance, mood disturbance, and anxiety (6) Hypertension Hypertension type: essential hypertension Qualified Code(s): I10 - Essential (primary) hypertension
--- NOTE | 2023-06-10 15:30 | Surgery Progress Note ---
Date of Service June 10, 2023 Assessment & Plan (1) SBO (small bowel obstruction): Plan: Patient seen with at bedside Pt confused No emesis today, Pt took out NG tube VSS Continue IV fluids for hydration KUB from today showing persistent SBO Will repeat KUB tomorrow AM Pt seen with Dr. Lezama As above. Clinically looks well however KUB did not show improvement. If repeat KUB tomorrow does not show improvement we will probably order small bowel follow-through tomorrow. Admission and Anticipated Discharge Date Admission Date: June 08, 2023 Subjective Patient seen with at bedside Pt confused No emesis today, Pt took out NG tube Physical Exam Constitutional: cooperative and comfortable; no acute distress Respiratory: normal respiratory effort and able to speak in complete sentences; no respiratory distress Gastrointestinal (Abdomen): Inspection/Auscultation: abdomen not distended Percussion/Palpation: abdomen soft Results & Data Vital Signs (Past 12 Hours) Vital Signs Pulse Pulse Resp BP Pulse Ox O2 Del Method 06/10/23 07:31 82 06/10/23 04:48 66 20 122/83 94 Room Air Results Complete Blood Count Results: RBC 3.98 M/uL (4.70-6.10) L 06/10/23 WBC 6.79 K/ul (4.8-10.8) 06/10/23 Hgb 12.1 g/dl (14.0-18.0) L 06/10/23 Hct 36.4 % (42.0-52.0) L 06/10/23 Plt Count 186 K/uL (130-400) 06/10/23 Results CMP Results: Na 138 mmol/L (136-145) 06/10/23 K 3.8 mmol/L (3.5-5.1) 06/10/23 Cl 107 mmol/L (98-107) 06/10/23 CO2 24 mmol/L (21-32) 06/10/23 Anion Gap 7 (3-11) 06/10/23 BUN 26 mg/dl (6-23) H 06/10/23 Creatinine 1.10 mg/dl (0.6-1.4) 06/10/23 Estimated GFR ( Amer) 69.1 ml/min 06/10/23 Estimated GFR (Non-Af Amer) 59.6 ml/min 06/10/23 BUN/Creatinine Ratio 23.6 (10-20) H 06/10/23 Glu 73 mg/dl (70-99(Fasting)) 06/10/23 Ca 8.5 mg/dl (8.6-10.3) L 06/10/23 Phosphorus Level 2.3 mg/dl (2.5-4.9) L 04/04/23 Total Bilirubin 1.0 mg/dl (0.2-1.0) 06/10/23 Direct Bilirubin 0.1 mg/dl (0-0.2) 04/02/23 AST 26 U/L (13-39) 06/10/23 ALT 17 U/L (7-52) 06/10/23 Alkaline Phosphatase 53 U/L (34-104) 06/10/23 TP 5.7 gm/dl (6.0-8.3) L 06/10/23 Albumin 3.2 gm/dl (3.4-5.0) L 06/10/23 Globulin 2.5 gm/dl (2.5-4.0) 06/10/23 Albumin/Globulin Ratio 1.3 (0.9-2) 06/10/23 PG Care Time/CCT Total # of Minutes Spent Total Time Spent with Patient: Total time spent is greater than 50% in coordination of care (as documented) at patient's floor/unit and/or counseling patient: Coding Level of Care Code 80321 SUB INP/OBS CARE 25MIN Diagnoses SBO (small bowel obstruction) K56.609
--- NOTE | 2023-06-11 08:41 | Surgery Progress Note ---
Date of Service June 11, 2023 Assessment & Plan (1) SBO (small bowel obstruction): Plan: Pt resting in bed confused denies abd pain abd soft non distended no documented emesis over night or fevers Pt ordered clear liquid diet by primary service KUB ordered for this am VSS Will follow Admission and Anticipated Discharge Date Admission Date: June 08, 2023 Subjective Pt resting in bed confused Physical Exam Physical Exam: alert Respiratory: normal respiratory effort and able to speak in complete sentences; no respiratory distress Cardiovascular: Rate/Rhythm: regular rate Gastrointestinal (Abdomen): Inspection/Auscultation: abdomen not distended Percussion/Palpation: abdomen soft Results & Data Vital Signs (Past 12 Hours) Vital Signs Temp Pulse Pulse Resp BP BP Pulse Ox 06/11/23 08:07 81 06/11/23 07:30 97.9 F 78 21 149/76 H 97 06/11/23 04:00 98.6 F 69 20 152/88 H 98 06/10/23 23:15 83 06/10/23 22:49 97.9 F 77 19 166/94 H 97 06/10/23 22:05 89 20 167/78 H 98 06/10/23 21:43 83 06/10/23 21:43 O2 Del Method 06/11/23 08:07 06/11/23 07:30 Room Air 06/11/23 04:00 Room Air 06/10/23 23:15 06/10/23 22:49 Room Air 06/10/23 22:05 Room Air 06/10/23 21:43 06/10/23 21:43 Room Air PG Care Time/CCT Total # of Minutes Spent Total Time Spent with Patient: Total time spent is greater than 50% in coordination of care (as documented) at patient's floor/unit and/or counseling patient: Coding Level of Care Code 70054 SUB INP/OBS CARE 05/22MIN Diagnoses SBO (small bowel obstruction) K56.609
--- NOTE | 2023-06-11 09:53 | XRay Report ---
KUB CLINICAL HISTORY: Small bowel obstruction. FINDINGS: 2 AP, portable, supine abdominal radiographs are compared to abdominal radiographs gated and correlated with abdominal CT dated 06/08/2023. There is significant gaseous distention of the stomach. Distended and gas-filled loops of small bowel indicate persistent obstruction. No eviden ce of intraperitoneal free air is seen on these supine images. There are no abnormal abdominal calcif ications. A phlebolith is noted in the pelvis. The skeletal structures are osteopenic and appear int act. There is moderate lumbosacral spondylosis. IMPRESSION: Persistent small bowel obstruction. Electronically signed by: Micheal Woods M.D. 06/11/2023 9:52 AM
[2023-06-11 10:05] LABS: Basophils # (auto) 0.04 K/uL (0.00-0.20); Basophils % (auto) 0.6 %; Eosinophils # (auto) 0.19 K/uL (0.00-0.50); Eosinophils % (auto) 2.9 %; Hematocrit (blood only) 36.5 % (42.0-52.0); Hemoglobin 12.2 g/dl (14.0-18.0); Immature Granulocytes # (auto) 0.03 K/uL (0.01-0.20); Immature Granulocytes % (auto) 0.5 %; Lymphocytes % (auto) 19.8 %; Mean Corpuscular Hemoglobin 30.3 pg (25.0-34.0); Mean Corpuscular Hgb Conc 33.4 g/dL (32.0-36.0); Mean Corpuscular Volume 90.8 fL (80.0-100.0); Mean Platelet Volume 10.8 fL (9.4-12.4); Monocytes # (auto) 0.72 K/uL (0.11-0.59); Neutrophils # (auto) 4.29 K/uL (1.40-6.50); Neutrophils % (auto) 65.2 %; Platelet Count 181 K/uL (130-400); RDW Coefficient of Variation 12.5 % (11.5-14.5); RDW Standard Deviation 41.7 fL (36.4-46.3); Red Blood Count 4.02 M/uL (4.70-6.10); White Blood Count 6.57 K/ul (4.8-10.8)
[2023-06-11 10:22] LABS: Albumin Globulin Ratio 1.3 (0.9-2); Albumin Level 3.2 gm/dl (3.4-5.0); Bilirubin,Total 0.9 mg/dl (0.2-1.0); Calcium 8.4 mg/dl (8.6-10.3); Creatinine Clr Calc Pharmacy 42.3 ml/min; Est GFR (African American) 68.3 ml/min; Globulin 2.4 gm/dl (2.5-4.0); Magnesium 1.9 mg/dl (1.7-2.4); Potassium 3.8 mmol/L (3.5-5.1); Total Protein 5.6 gm/dl (6.0-8.3)
--- NOTE | 2023-06-11 11:38 | Hospitalist Progress Note ---
Date of Service June 11, 2023 Assessment & Plan (1) SBO (small bowel obstruction): Plan: -Currently stable with symptoms well controlled -KUB and CT of the abd/pelvis showed evidence of small bowel obstruction -Has a previous hx of SBO which have resolved with NG tube placement and bowel rest -General Surgery has been consulted and is following -Initially had an NG tube, however patient removed NG tube -Evaluated by general surgery, no surgical plans for now -Repeat KUB today, 06/11/2023 showed persistent small bowel obstruction, same as yesterday -Per surgery, may consider small bowel follow-through. 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: Plan: -Will give 40 mg IV pantoprazole on admission -Continue 40 mg IV pantoprazole daily while NPO (4) Dementia: Plan: -Will hold home memantine for now -Resume when able to take PO intake (5) Constipation: Plan: -Continue to monitor for BM -Would defer to General Surgery regarding starting suppositories or enemas at this time -Conitnue IV hydration (6) Hypertension: Plan: -Blood pressure is now under better control Plan Continue to monitor, repeat KUB tomorrow Admission and Anticipated Discharge Date Admission Date: June 08, 2023 Subjective Patient seen and examined today, does not seem to be in any pain, sitting up in the chair, he is not sure if he is passing gas or had a bowel movement. Review of Systems Review of Systems: Unable to obtain due to dementia Physical Exam Physical Exam: The patient is awake, confused HEENT--PERRL, EOMI, mucous membranes and oropharynx mildly dry Neck--supple. No JVD. No bruits. Thyroid normal, trachea midline, no adenopathy. Heart--normal S1 and S2. No murmurs, rubs or gallops. Lungs--clear bilaterally, no respiratory distress, no accessory muscle use. Abdomen--normal bowel sounds and soft. Mild epigastric and left sided abdominal pain Extremities--no cyanosis or clubbing. No edema. Dermatologic--normal skin turgor, normal color, no abnormal lymph nodes, no rash. Neurologic--cranial nerves II through XII grossly intact. Rheumatologic--normal range of motion. Psychiatric--normal affect. Results & Data Results & Data Vital Signs (Past 12 Hours) Vital Signs Temp Pulse Pulse Resp BP Pulse Ox O2 Del Method 06/11/23 08:07 81 06/11/23 07:30 97.9 F 78 21 149/76 H 97 Room Air 06/11/23 04:00 98.6 F 69 20 152/88 H 98 Room Air PG Care Time/CCT Total # of Minutes Spent Total Time Spent with Patient: Total time spent is greater than 50% in coordination of care (as documented) at patient's floor/unit and/or counseling patient: Coding Level of Care Code 48255 SUB INP/OBS CARE 2/35MIN Diagnoses SBO (small bowel obstruction) K56.609 Abdominal pain R10.84 Abdominal location: generalized 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 K22.70 Dementia F03.90 Dementia behavioral or psychological symptom: unspecified whether behavioral, psychotic, or mood disturbance or anxiety Dementia severity: unspecified severity Dementia type: unspecified type Constipation K59.00 Essential hypertension I10 Hypertension type: essential hypertension Time Spent (min) 35 (2) Abdominal pain Abdominal location: generalized Qualified Code(s): R10.84 - Generalized abdominal pain (4) Dementia Dementia behavioral or psychological symptom: unspecified whether behavioral, psychotic, or mood disturbance or anxiety Dementia severity: unspecified severity Dementia type: unspecified type Qualified Code(s): F03.90 - Unspecified dementia, unspecified severity, without behavioral disturbance, psychotic disturbance, mood disturbance, and anxiety (6) Hypertension Hypertension type: essential hypertension Qualified Code(s): I10 - Essential (primary) hypertension
[2023-06-12 06:32] LABS: Basophils # (auto) 0.04 K/uL (0.00-0.20); Basophils % (auto) 0.5 %; Eosinophils # (auto) 0.19 K/uL (0.00-0.50); Eosinophils % (auto) 2.5 %; Hematocrit (blood only) 36.8 % (42.0-52.0); Hemoglobin 12.5 g/dl (14.0-18.0); Immature Granulocytes # (auto) 0.06 K/uL (0.01-0.20); Immature Granulocytes % (auto) 0.8 %; Lymphocytes # (auto) 1.68 K/uL (1.20-3.40); Lymphocytes % (auto) 22.2 %; Mean Corpuscular Hemoglobin 30.4 pg (25.0-34.0); Mean Corpuscular Volume 89.5 fL (80.0-100.0); Mean Platelet Volume 10.8 fL (9.4-12.4); Monocytes # (auto) 0.79 K/uL (0.11-0.59); Monocytes % (auto) 10.4 %; Neutrophils % (auto) 63.6 %; Platelet Count 217 K/uL (130-400); RDW Coefficient of Variation 12.6 % (11.5-14.5); Red Blood Count 4.11 M/uL (4.70-6.10); White Blood Count 7.56 K/ul (4.8-10.8)
[2023-06-12 06:56] LABS: Albumin Globulin Ratio 1.4 (0.9-2); Albumin Level 3.7 gm/dl (3.4-5.0); Bilirubin,Total 0.8 mg/dl (0.2-1.0); Calcium 8.8 mg/dl (8.6-10.3); Creatinine Clr Calc Pharmacy 44.1 ml/min; Est GFR (African American) 70.6 ml/min; Globulin 2.6 gm/dl (2.5-4.0); Magnesium 1.8 mg/dl (1.7-2.4); Potassium 3.7 mmol/L (3.5-5.1); Total Protein 6.3 gm/dl (6.0-8.3)
--- NOTE | 2023-06-12 13:21 | Hospitalist Progress Note ---
Date of Service June 12, 2023 Assessment & Plan (1) SBO (small bowel obstruction): Plan: -Currently stable with symptoms well controlled -KUB and CT of the abd/pelvis showed evidence of small bowel obstruction -Has a previous hx of SBO which have resolved with NG tube placement and bowel rest -General Surgery has been consulted and is following -Initially had an NG tube, however patient removed NG tube -Evaluated by general surgery, no surgical plans for now -Repeat KUB , 06/11/2023 showed persistent small bowel obstruction, same as the day before -He is now scheduled for small bowel follow-through -Appreciate surgery commendations (2) Abdominal pain: Plan: -See SBO -Will start with prn tylenol for pain -Will order prn antiemetics once ECG is obtained (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: Plan: -Will give 40 mg IV pantoprazole on admission -Continue 40 mg IV pantoprazole daily while NPO (4) Dementia: Plan: -Will hold home memantine for now -Resume when able to take PO intake (5) Constipation: Plan: -Continue to monitor for BM -Would defer to General Surgery regarding starting suppositories or enemas at this time -Conitnue IV hydration (6) Hypertension: Plan: -Blood pressure is now under better control Plan Continue to monitor, for small bowel follow-through today Admission and Anticipated Discharge Date Admission Date: June 08, 2023 Subjective Patient seen and examined today, does not seem to be in any pain, sitting up in the chair, he is not sure if he is passing gas or had a bowel movement. Review of Systems Review of Systems: Unable to obtain due to dementia Physical Exam Physical Exam: The patient is awake, confused HEENT--PERRL, EOMI, mucous membranes and oropharynx mildly dry Neck--supple. No JVD. No bruits. Thyroid normal, trachea midline, no adenopathy. Heart--normal S1 and S2. No murmurs, rubs or gallops. Lungs--clear bilaterally, no respiratory distress, no accessory muscle use. Abdomen--normal bowel sounds and soft. Mild epigastric and left sided abdominal pain Extremities--no cyanosis or clubbing. No edema. Dermatologic--normal skin turgor, normal color, no abnormal lymph nodes, no rash. Neurologic--cranial nerves II through XII grossly intact. Rheumatologic--normal range of motion. Psychiatric--normal affect. Results & Data Results & Data Vital Signs (Past 12 Hours) Vital Signs Temp Pulse Pulse Resp BP Pulse Ox O2 Del Method 06/12/23 12:05 178/102 H 06/12/23 11:13 97.3 F L 75 19 199/102 H 93 Room Air 06/12/23 10:26 85 06/12/23 07:35 98.6 F 88 18 167/108 H 98 Room Air 06/12/23 03:00 97.5 F L 81 20 151/83 H 96 Room Air PG Care Time/CCT Total # of Minutes Spent Total Time Spent with Patient: Total time spent is greater than 50% in coordination of care (as documented) at patient's floor/unit and/or counseling patient: Coding Level of Care Code 35695 SUB INP/OBS CARE 2/35MIN Diagnoses SBO (small bowel obstruction) K56.609 Abdominal pain R10.84 Abdominal location: generalized 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 K22.70 Dementia F03.90 Dementia behavioral or psychological symptom: unspecified whether behavioral, psychotic, or mood disturbance or anxiety Dementia severity: unspecified severity Dementia type: unspecified type Constipation K59.00 Essential hypertension I10 Hypertension type: essential hypertension Time Spent (min) 35 (2) Abdominal pain Abdominal location: generalized Qualified Code(s): R10.84 - Generalized abdominal pain (4) Dementia Dementia behavioral or psychological symptom: unspecified whether behavioral, psychotic, or mood disturbance or anxiety Dementia severity: unspecified severity Dementia type: unspecified type Qualified Code(s): F03.90 - Unspecified dementia, unspecified severity, without behavioral disturbance, p sychotic disturbance, mood disturbance, and anxiety (6) Hypertension Hypertension type: essential hypertension Qualified Code(s): I10 - Essential (primary) hypertension
--- NOTE | 2023-06-12 14:28 | Surgery Progress Note ---
Date of Service June 12, 2023 Assessment & Plan (1) SBO (small bowel obstruction): Plan: Pt resting in bed confused denies abd pain abd soft non distended WBC wnl no documented emesis over night or fevers Pt ordered clear liquid diet by primary service nurse states he is tolerating well No documented bowel movements SBFT ordered this AM, however it is not read yet as above. contrast into colon in 1 hour 40 minutes will re-initiate clears and will advance as tolerated. Admission and Anticipated Discharge Date Admission Date: June 08, 2023 Subjective Patient with known dementia Reports he is feeling well Physical Exam Physical Exam: alert Constitutional: cooperative and comfortable; no acute distress Respiratory: normal respiratory effort and able to speak in complete sentences; no respiratory distress Cardiovascular: Rate/Rhythm: regular rate Gastrointestinal (Abdomen): Inspection/Auscultation: abdomen not distended Percussion/Palpation: abdomen soft Results & Data Vital Signs (Past 12 Hours) Vital Signs Temp Pulse Pulse Resp BP Pulse Ox O2 Del Method 06/12/23 12:05 178/102 H 06/12/23 11:13 97.3 F L 75 19 199/102 H 93 Room Air 06/12/23 10:26 85 06/12/23 07:35 98.6 F 88 18 167/108 H 98 Room Air 06/12/23 03:00 97.5 F L 81 20 151/83 H 96 Room Air PG Care Time/CCT Total # of Minutes Spent Total Time Spent with Patient: Total time spent is greater than 50% in coordination of care (as documented) at patient's floor/unit and/or counseling patient: Coding Level of Care Code 82109 SUB INP/OBS CARE 05/22MIN Diagnoses SBO (small bowel obstruction) K56.609
--- NOTE | 2023-06-12 15:07 | Fluoroscopy Report ---
[place] small bowel follow through CLINICAL HISTORY: Small bowel obstruction. Follow-up. COMPARISON STUDY: KUB 06/11/2023. FLUOROSCOPY TIME: None. FLUOROSCOPY IMAGES: None. Ka,r: None. FINDINGS: 6 overhead images of the abdomen and pelvis were obtained. [employer] Analyst image demonstrates multipl e dilated gas-filled loops of large and small bowel seen throughout the abdomen. There is also modera te gaseous distention of the stomach. The patient swallowed water-soluble contrast without difficulty . The contrast reaches the cecum by one hour and 40 minutes. There are dilated loops of duodenum and proximal jejunum noted. The mid to distal small bowel loops are decompressed. This is similar to the prior CT examination. IMPRESSION: The stomach, duodenum, and proximal jejunum remain dilated. However, contrast extends thr ough these small bowel loops and into the decompressed mid to distal small bowel loops. Therefore, fi ndings favor a partial small bowel obstruction. ACT 112: Negative or not required by law. Electronically signed by: Atilio Garcia M.D. 06/12/2023 3:06 PM
[2023-06-13 07:38] LABS: Basophils # (auto) 0.06 K/uL (0.00-0.20); Basophils % (auto) 0.7 %; Eosinophils # (auto) 0.21 K/uL (0.00-0.50); Eosinophils % (auto) 2.6 %; Hematocrit (blood only) 35.7 % (42.0-52.0); Hemoglobin 12.4 g/dl (14.0-18.0); Immature Granulocytes # (auto) 0.03 K/uL (0.01-0.20); Immature Granulocytes % (auto) 0.4 %; Lymphocytes # (auto) 1.56 K/uL (1.20-3.40); Mean Corpuscular Hemoglobin 30.7 pg (25.0-34.0); Mean Corpuscular Hgb Conc 34.7 g/dL (32.0-36.0); Mean Corpuscular Volume 88.4 fL (80.0-100.0); Mean Platelet Volume 11.1 fL (9.4-12.4); Monocytes # (auto) 0.89 K/uL (0.11-0.59); Monocytes % (auto) 10.8 %; Neutrophils # (auto) 5.48 K/uL (1.40-6.50); Neutrophils % (auto) 66.5 %; Platelet Count 217 K/uL (130-400); RDW Coefficient of Variation 12.7 % (11.5-14.5); RDW Standard Deviation 41.3 fL (36.4-46.3); Red Blood Count 4.04 M/uL (4.70-6.10); White Blood Count 8.23 K/ul (4.8-10.8)
[2023-06-13 07:54] LABS: Albumin Globulin Ratio 1.4 (0.9-2); Albumin Level 3.4 gm/dl (3.4-5.0); BUN Creatinine Ratio 8.7 (10-20); Bilirubin,Total 0.6 mg/dl (0.2-1.0); Calcium 8.6 mg/dl (8.6-10.3); Creatinine Clr Calc Pharmacy 45.8 ml/min; Est GFR (Non-African American) 63.8 ml/min; Globulin 2.5 gm/dl (2.5-4.0); Magnesium 1.9 mg/dl (1.7-2.4); Potassium 3.9 mmol/L (3.5-5.1); Total Protein 5.9 gm/dl (6.0-8.3)
--- NOTE | 2023-06-13 10:07 | Hospitalist Progress Note ---
Date of Service June 13, 2023 Assessment & Plan (1) SBO (small bowel obstruction): Plan: -Currently stable with symptoms well controlled -KUB and CT of the abd/pelvis showed evidence of small bowel obstruction -Has a previous hx of SBO which have resolved with NG tube placement and bowel rest -General Surgery has been consulted and is following -Initially had an NG tube, however patient removed NG tube -Evaluated by general surgery, no surgical plans for now -Repeat KUB , 06/11/2023 showed persistent small bowel obstruction, same as the day before -Small bowel follow-through done 2023 showed evidence of partial small bowel obstruction -Appreciate surgery commendations (2) Abdominal pain: Plan: -See SBO -No abdominal pain the patient -Will start with prn tylenol for pain -Will order prn antiemetics once ECG is obtained (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: Plan: -Will give 40 mg IV pantoprazole on admission -Continue 40 mg IV pantoprazole daily while NPO (4) Dementia: Plan: -Will hold home memantine for now -Resume when able to take PO intake (5) Constipation: Plan: -Continue to monitor for BM -Would defer to General Surgery regarding starting suppositories or enemas at this time -Conitnue IV hydration (6) Hypertension: Plan: -Blood pressure is now under better control Plan Continue to monitor, Admission and Anticipated Discharge Date Admission Date: June 08, 2023 Subjective Patient seen and examined, lying quietly in bed, denies any abdominal pain Review of Systems Review of Systems: Unreliable due to dementia Physical Exam Physical Exam: The patient is awake, confused HEENT--PERRL, EOMI, mucous membranes and oropharynx mildly dry Neck--supple. No JVD. No bruits. Thyroid normal, trachea midline, no adenopat hy. Heart--normal S1 and S2. No murmurs, rubs or gallops. Lungs--clear bilaterally, no respiratory distress, no accessory muscle use. Abdomen--normal bowel sounds and soft. Mild epigastric and left sided abdominal pain Extremities--no cyanosis or clubbing. No edema. Dermatologic--normal skin turgor, normal color, no abnormal lymph nodes, no rash. Neurologic--cranial nerves II through XII grossly intact. Rheumatologic--normal range of motion. Psychiatric--normal affect. Results & Data Results & Data Vital Signs (Past 12 Hours) Vital Signs Temp Pulse Resp BP Pulse Ox O2 Del Method 06/13/23 07:19 98.8 F 78 16 162/85 H 96 Room Air PG Care Time/CCT Total # of Minutes Spent Total Time Spent with Patient: Total time spent is greater than 50% in coordination of care (as documented) at patient's floor/unit and/or counseling patient: Coding Level of Care Code 25471 SUB INP/OBS CARE 2/35MIN Diagnoses SBO (small bowel obstruction) K56.609 Abdominal pain R10.84 Abdominal location: generalized 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 K22.70 Dementia F03.90 Dementia behavioral or psychological symptom: unspecified whether behavioral, psychotic, or mood disturbance or anxiety Dementia severity: unspecified severity Dementia type: unspecified type Constipation K59.00 Essential hypertension I10 Hypertension type: essential hypertension Time Spent (min) 35 (2) Abdominal pain Abdominal location: generalized Qualified Code(s): R10.84 - Generalized abdominal pain (4) Dementia Dementia behavioral or psychological symptom: unspecified whether behavioral, psychotic, or mood disturbance or anxiety Dementia severity: unspecified severity Dementia type: unspecified type Qualified Code(s): F03.90 - Unspecified dementia, unspecified severity, without behavioral disturbance, psychotic disturbance, mood disturbance, and anxiety (6) Hypertension Hypertension type: essential hypertension Qualified Code(s): I10 - Essential (primary) hypertension
--- NOTE | 2023-06-13 11:00 | Surgery Progress Note ---
Date of Service June 13, 2023 Assessment & Plan (1) SBO (small bowel obstruction): Plan: Pt here with SBO. A SBFT was performed yesterday that showed contrast reached the cecum by 1 hr 40 mins Denies pain and reports bowel function but is pleasantly confused. last BM documented 06/10 Will continue to advance diet as tolerates [facility] surgery covering the wknd Admission and Anticipated Discharge Date Admission Date: June 08, 2023 Subjective Patient reports feeling well. Denies pain. Reports gas and BMs however per nursing no BM since 06/10. Physical Exam Physical Exam: awake, pleasant Gastrointestinal (Abdomen): Percussion/Palpation: abdomen soft; abdomen nontender Results & Data Vital Signs (Past 12 Hours) Vital Signs Temp Pulse Resp BP Pulse Ox O2 Del Method 06/13/23 07:19 98.8 F 78 16 162/85 H 96 Room Air PG Care Time/CCT Total # of Minutes Spent Total Time Spent with Patient: Total time spent is greater than 50% in coordination of care (as documented) at patient's floor/unit and/or counseling patient: Coding Level of Care Code 72306 SUB INP/OBS CARE 1/25MIN Diagnoses SBO (small bowel obstruction) K56.609
[2023-06-14] MEDS ORDERED: Nursing to Pharmacy Communication SCH (07:45)
[2023-06-14] MEDS: PANTOprazole 40 MG TAB PO SCH (08:59)
--- NOTE | 2023-06-14 11:35 | Hospitalist Progress Note ---
Date of Service June 14, 2023 Assessment & Plan (1) SBO (small bowel obstruction): Plan: -Currently stable with symptoms well controlled -KUB and CT of the abd/pelvis showed evidence of small bowel obstruction -Has a previous hx of SBO which have resolved with NG tube placement and bowel rest, however refused NG tube in this admission -Evaluated by general surgery, no surgical plans for now -Repeat KUB , 06/11/2023 showed persistent small bowel obstruction, same as the day before -Small bowel follow-through done 2023 showed evidence of partial small bowel obstruction -Tolerating full liquid diet, advance as tolerated -Appreciate surgery commendations (2) Abdominal pain: Plan: Now resolved, patient denies any abdominal pains (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 Protonix (4) Dementia: Plan: Resume his home memantine (5) Constipation: Plan: -Continue to monitor for BM -Would defer to General Surgery regarding starting suppositories or enemas at th is time -According to reports, last bowel movement was June 10, although patient thinks he had a bowel movement yesterday (6) Hypertension: Plan: -Blood pressure is now under better control -Hold metoprolol on account of mild bradycardia Plan Continue to monitor, discharge when stable from surgical point of view Admission and Anticipated Discharge Date Admission Date: June 08, 2023 Subjective Patient seen and examined, sitting up in the chair, pleasantly confused, denies any abdominal pain, tolerating full liquid diet Review of Systems Review of Systems: Unreliable due to dementia Physical Exam Physical Exam: The patient is awake, confused HEENT--PERRL, EOMI, mucous membranes and oropharynx mildly dry Neck--supple. No JVD. No bruits. Thyroid normal, trachea midline, no adenopathy. Heart--normal S1 and S2. No murmurs, rubs or gallops. Lungs--clear bilaterally, no respiratory distress, no accessory muscle use. Abdomen--normal bowel sounds and soft. Mild epigastric and left sided abdominal pain Extremities--no cyanosis or clubbing. No edema. Dermatologic--normal skin turgor, normal color, no abnormal lymph nodes, no rash. Neurologic--cranial nerves II through XII grossly intact. Rheumatologic--normal range of motion. Psychiatric--normal affect. Results & Data Results & Data Vital Signs (Past 12 Hours) Vital Signs Temp Pulse Resp BP Pulse Ox O2 Del Method 06/14/23 08:50 Room Air 06/14/23 07:41 97.3 F L 57 L 17 143/82 H 96 Room Air PG Care Time/CCT Total # of Minutes Spent Total Time Spent with Patient: Total time spent is greater than 50% in coordination of care (as documented) at patient's floor/unit and/or counseling patient: Coding Level of Care Code 77631 SUB INP/OBS CARE 2/35MIN Diagnoses SBO (small bowel obstruction) K56.609 Abdominal pain R10.84 Abdominal location: generalized 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 K22.70 Dementia F03.90 Dementia behavioral or psychological symptom: unspecified whether behavioral, psychotic, or mood disturbance or anxiety Dementia severity: unspecified severity Dementia type: unspecified type Constipation K59.00 Essential hypertension I10 Hypertension type: essential hypertension Time Spent (min) 35 (2) Abdominal pain Abdominal location: generalized Qualified Code(s): R10.84 - Generalized abdominal pain (4) Dementia Dementia behavioral or psychological symptom: unspecified whether behavioral, psychotic, or mood disturbance or anxiety Dementia severity: unspecified severity Dementia type: unspecified type Qualified Code(s): F03.90 - Unspecified dementia, unspecified severity, without behavioral disturbance, psychotic disturbance, mood disturbance, and anxiety (6) Hypertension Hypertension type: essential hypertension Qualified Code(s): I10 - Essential (primary) hypertension
[2023-06-14] MEDS: ASPIRIN 81 MG ECTAB PO SCH (12:44)
[2023-06-14] MEDS: CHOLECALCIFEROL 25 MCG (1000 UNITS) TAB PO SCH (12:44)
--- NOTE | 2023-06-14 15:45 | Discharge Summary ---
Date of Service June 14, 2023 Admission HPI Per Admitting Provider Nader is an 88 year old male with a PMH significant for previous SBO, Mauro's esophagus, chronic pain syndrome, dementia, GERD, hyperlipidemia, hypertension, vitamin D deficiency, polyneuropathy, history of gastric ulcer who presented to the [facility] ED on 06/08/23 with complaints of abdominal pain. He was noted to have a HR of 91 on arrival but was otherwise stable. Labs including CBC, CMP, and lipase were unremarkable. KUB was read as "1. Several loops of mildly dilated small bowel within left upper quadrant. The findings could reflect a partial small bowel obstruction or ileus. 2. Moderate amount of stool within the colon and rectum. 3. Marked gaseous distention of the stomach. Gaseous distention has been shown on several prior studies.". CT of the abd/pelvis w/con was read as "1. Mildly dilated fluid-filled proximal jejunum with apparent transition point within the mid jejunum. Relatively decompressed distal small bowel. The findings may reflect a partial small bowel obstruction. 2. Significantly distended fluid-filled stomach. Fluid-filled, dilated distal esophagus. 3. No pneumatosis, free air or portal venous gas. No fluid collections. 4. Moderate amount of stool within the colon and rectum.". The ED staff spoke with General Surgery who recommends NPO status with NG tube placement, they will follow. Prior to admission the patient had an NG tube placed. At the time of the exam the patient was sitting in bed in no acute distress with his bedside. History was obtained from his due to his baseline Dementia. She states that the patient started to develop mild abdominal pain nadeem roximately 48 hours ago. He has not had a bowel movement in over 72 hours. She gave him a dose of lactulose yesterday to try and improve his constipation. This am the patient only took one bite of toast but has increased abdominal pain promoting ED evaluation. The patient is currently comfortable and denies pain. His states the last time he was admitted for SBO he was screaming in pain. She explained that he pulled his NG tube out the last admission, as-well-as his IV's. We discussed placing soft mitts on his hands to prevent him from doing this again, she is in agreement. He has a DNR/DNI and his is his POA. Principal Diagnosis Small bowel obstruction Discharge Exam The patient is awake, confused HEENT--PERRL, EOMI, mucous membranes and oropharynx mildly dry Neck--supple. No JVD. No bruits. Thyroid normal, trachea midline, no adenopathy. Heart--normal S1 and S2. No murmurs, rubs or gallops. Lungs--clear bilaterally, no respiratory distress, no accessory muscle use. Abdomen--normal bowel sounds and soft. Mild epigastric and left sided abdominal pain Extremities--no cyanosis or clubbing. No edema. Dermatologic--normal skin turgor, normal color, no abnormal lymph nodes, no rash. Neurologic--cranial nerves II through XII grossly intact. Rheumatologic--normal range of motion. Psychiatric--normal affect. Discharge Data Allergies Allergy/AdvReac Type Severity Reaction Status Date / Time oxytetracycline Allergy Unknown MADE Verified 06/08/23 18:34 [From Terramycin] ILLNESS WORSE Consultations 06/08/23 19:13 ED Decision to Admit Stat 06/08/23 19:26 Consult General Surgery Routine Ordered Studies 06/08/23 17:36 CT abd pelvis IV con only Stat 06/12/23 06:58 SBFT Modified Swallow [[place] small bowel follow through] Urgent Hospital Course (1) SBO (small bowel obstruction): -Currently stable with symptoms well controlled -KUB and CT of the abd/pelvis showed evidence of small bowel obstruction -Has a previous hx of SBO which have resolved with NG tube placement and bowel rest, however refused NG tube in this admission -Evaluated by general surgery, no surgical plans for now -Repeat KUB , 06/11/2023 showed persistent small bowel obstruction, same as the day before -Small bowel follow-through done 2023 showed evidence of partial small bowel obstruction -Tolerating full liquid diet, advance as tolerated -The came again today and insisted she wanted to take the patient home -The signed out AGAINST MEDICAL ADVICE (2) Abdominal pain: Now resolved, patient denies any abdominal pains (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 Protonix (4) Dementia: Resume his home memantine (5) Constipation: -Continue to monitor for BM -Would defer to General Surgery regarding starting suppositories or enemas at this time -According to reports, last bowel movement was June 10, although patient thinks he had a bowel movement yesterday (6) Hypertension: -Blood pressure is now under better control -Hold metoprolol on account of mild bradycardia Plan Signed out AGAINST MEDICAL ADVICE Total Time Total Time Spent Total Time Spent (In Minutes): 35 Discharge Plan Discharge Items Patient Disposition: Against Medical Advice Reason For Visit: SBO Activity: Resume your previous activity Non-emergency contact: Primary Care Provider Follow-up/Referrals: Aleksandr Levine CRNP [Primary Care Provider] - Pending Studies at Discharge: No Stand-Alone Forms: My [facility], Smoking Cessation Medications and DC Order Prescriptions: Continued cholecalciferol (vitamin D3) [Vitamin D3] 25 mcg (1,000 unit) tablet 2,000 units PO QAM omeprazole 20 mg Capsule,Delayed Release(Dr/Ec) 20 mg PO DAILY PRN (Reason: Acid Reflux) aspirin 81 mg Tablet,Delayed Release (Dr/Ec) 81 mg PO QAM metoprolol succinate 25 mg tablet extended release 24 hr 25 mg PO QAM lactulose 10 gram/15 mL (15 mL) solution 20 g PO QID PRN (Reason: constipation) Qty: 600 0RF memantine 28 mg capsule,sprinkle,ER 24hr 28 mg PO QAM Rx Instructions: TAKE 1 CAPSULE DAILY Discharge Orders: Left Against Medical Advice (Routine); Ordered 06/14/23 Ordered By: Ryan Frazier Admission Data Admit Date/Time: 06/08/23 19:24 Attending Provider: Ryan Frazier Admit Provider: Herber Schumacher Primary Care Provider: Aleksandr Levine Other Providers: Herber Schumacher; Aleksandr Lezama Coding Level of Care Code 76743 INP/OBS DISCH >30 MIN Diagnoses SBO (small bowel obstruction) K56.609 Abdominal pain R10.84 Abdominal location: generalized 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 K22.70 Dementia F03.90 Dementia behavioral or psychological symptom: unspecified whether behavioral, psychotic, or mood disturbance or anxiety Dementia severity: unspecified severity Dementia type: unspecified type Constipation K59.00 Essential hypertension I10 Hypertension type: essential hypertension Time Spent (min) 35
[2023-06-15] MEDS ORDERED: MEMANTINE HCL 10 MG TAB PO SCH (09:00)
== END 2023-06-14 13:42 | disposition left against medical advice (07) | DRG 390 ==
LOC: ED 15:56 → SUATTDRO 19:24 → EDINP 19:24 → 4W 21:52 → 3N 06-12 15:26